=== PATIENT | female | born 1965 | race Caucasian/White ===

== ENCOUNTER → 2020-05-13 13:26 | Outpatient (BNVA) | payer MEDICAID, SELFPAY | PROVIDERS: PCP Internal Medicine Geriatric Medicine; Referring Provider Internal Medicine Geriatric Medicine; Visit Provider Anesthesiology | DX: M47.816 Spondylosis without myelopathy or radiculopathy, lumbar region (principal); M51.36 Other intervertebral disc degeneration, lumbar region; D17.71 Benign lipomatous neoplasm of kidney | CPT/HCPCS: 99202 ==

== ENCOUNTER 2020-05-18 05:34 | Outpatient (REF) | payer MEDICAID, SELFPAY ==
--- NOTE | 2020-05-18 08:38 | FL_ITS ---
EXAMINATION: XR FLUOROSCOPY WITH IMAGES CLINICAL INFORMATION: M47.816 - Spondylosis without myelopathy or radiculopathy COMPARISON: CT lumbar spine 07/24/2019 TECHNIQUE: Fluoroscopy performed by Tegan Mitchell NP. Fluoroscopy time: 0.9 minutes DAP: 3.39 Gycm2 Images: 8 FINDINGS: There are bilateral spinal needles at the outer aspect of the L3, L4, L5 neural foramen. There is contrast in the nerve sheaths with some transforaminal epidural extension. No visible vascular communication. FL/FL guidance in treatment room IMPRESSION: Fluoroscopy for pain management procedures.
== END 2020-05-18 05:35 | disposition home or self-care (01) ==
LOC: HO.RADIR 05:34
PROVIDERS: Visit Provider Anesthesiology
DX: M47.816 Spondylosis without myelopathy or radiculopathy, lumbar region (principal)
CPT/HCPCS: 64493; 64494; 64495; J3300; Q9967

== ENCOUNTER 2022-12-11 12:23 | Outpatient (REF) | payer MEDICAID, SELFPAY | END 2022-12-11 12:24 | disposition home or self-care (01) | LOC: HO.HHCL 12:23 | PROVIDERS: Visit Provider Internal Medicine Geriatric Medicine | DX: Z13.220 Encounter for screening for lipoid disorders (principal); I10 Essential (primary) hypertension; F41.8 Other specified anxiety disorders | CPT/HCPCS: 36415; 80053; 80061; 82306; 84443; 85025 ==

== ENCOUNTER 2023-01-17 18:07 | Outpatient (REF) | payer MEDICAID, SELFPAY ==
[2023-01-22 13:55] LABS: Alphahydroxymidazolam,GCMS Ur NEGATIVE; Alphahydroxytriazolam, GCMS Ur NEGATIVE; Alprazolam, GCMS Urine NEGATIVE; Flurazepam Metabolite,GCMS Ur NEGATIVE; Lorazepam GCMS Urine NEGATIVE; Nordiazepam, GCMS Urine NEGATIVE; Oxazepam, GCMS Urine NEGATIVE; Temazepam, GCMS Urine NEGATIVE
== END 2023-01-17 18:08 | disposition home or self-care (01) ==
LOC: HO.HHCLNP 18:07
PROVIDERS: Visit Provider Internal Medicine Geriatric Medicine
DX: F41.8 Other specified anxiety disorders (principal)
CPT/HCPCS: 80346

== ENCOUNTER 2023-03-14 17:38 | Outpatient (REF) | payer MEDICAID, SELFPAY ==
[2023-03-15 05:39] LABS: CT PCR NOT DETECTED (Not Detect.); NG PCR NOT DETECTED (Not Detect.)
== END 2023-03-14 17:39 | disposition home or self-care (01) ==
LOC: HO.HHCLNP 17:38
PROVIDERS: Visit Provider Internal Medicine
DX: R30.0 Dysuria (principal)
CPT/HCPCS: 0353U; 87086; 87088; 87186

== ENCOUNTER 2023-05-09 18:34 | Outpatient (REF) | payer MEDICAID, SELFPAY ==
[2023-05-14 08:29] LABS: Alphahydroxymidazolam,GCMS Ur NEGATIVE; Alphahydroxytriazolam, GCMS Ur NEGATIVE; Alprazolam, GCMS Urine NEGATIVE; Flurazepam Metabolite,GCMS Ur NEGATIVE; Lorazepam GCMS Urine NEGATIVE; Nordiazepam, GCMS Urine NEGATIVE; Oxazepam, GCMS Urine NEGTAIVE; Temazepam, GCMS Urine NEGATIVE
== END 2023-05-09 18:35 | disposition home or self-care (01) ==
LOC: HO.HHCLNP 18:34
PROVIDERS: Visit Provider Internal Medicine Geriatric Medicine
DX: F41.9 Anxiety disorder, unspecified (principal)
CPT/HCPCS: 80346

== ENCOUNTER 2023-07-09 13:28 | Outpatient (REF) | payer MEDICAID, SELFPAY ==
--- NOTE | ~2023-07-09 | XR_ITS ---
EXAMINATION: XR RIBS, RIGHT CLINICAL INFORMATION: Injury COMPARISON: None available. TECHNIQUE: 3 views of the right ribs were obtained. FINDINGS: Lungs are clear. No consolidation, pneumothorax, or pleural effusion. The cardiomediastinal silhouette and pulmonary vasculature are normal. Osseous structures are unremarkable. Ribs are intact. No fractures are identified. XR/XR ribs RT min 3V w CXR1V IMPRESSION: Unremarkable chest examination.
== END 2023-07-09 13:29 | disposition home or self-care (01) ==
LOC: HO.HHCX 13:28
PROVIDERS: Visit Provider Nurse Practitioner Primary Care
DX: M54.6 Pain in thoracic spine (principal); R07.81 Pleurodynia
CPT/HCPCS: 71101

== ENCOUNTER 2023-07-12 13:15 | Outpatient (REF) | payer MEDICAID, SELFPAY ==
[2023-07-16 08:29] LABS: Alphahydroxymidazolam,GCMS Ur NEGATIVE; Alphahydroxytriazolam, GCMS Ur NEGATIVE; Alprazolam, GCMS Urine NEGATIVE; Flurazepam Metabolite,GCMS Ur NEGATIVE; Lorazepam GCMS Urine NEGATIVE; Nordiazepam, GCMS Urine NEGATIVE; Oxazepam, GCMS Urine NEGATIVE; Temazepam, GCMS Urine NEGATIVE
== END 2023-07-12 13:16 | disposition home or self-care (01) ==
LOC: HO.HHCLNP 13:15
PROVIDERS: Visit Provider Internal Medicine Geriatric Medicine
DX: F41.9 Anxiety disorder, unspecified (principal)
CPT/HCPCS: 80346

== ENCOUNTER 2023-09-13 09:39 | Outpatient (REF) | payer MEDICAID, SELFPAY ==
[2023-09-13 12:05] LABS: Anion Gap 9 (12-20); Blood Urea Nitrogen 15 mg/dL (9-16); Calcium 9.6 mg/dL (8.4-10.2); Carbon Dioxide 28 mmol/L (22-29); Chloride 107 mmol/L (96-108); Cholesterol 226 mg/dL (<200); Estimated Glomerular Filt Rate > 60; Glucose Random 79 mg/dL (60-115); HDL Cholesterol 74 mg/dL (>40); LDL Cholesterol Calculated 131 mg/dL (<100); Potassium 3.8 mmol/L (3.3-5.1); Sodium 140 mmol/L (135-145); Triglycerides 106 mg/dL (<150)
[2023-09-19 11:41] LABS: Alphahydroxymidazolam,GCMS Ur NEGATIVE; Alphahydroxytriazolam, GCMS Ur NEGATIVE; Alprazolam, GCMS Urine NEGATIVE; Aminoclonazepam, GCMS Urine 119 (H); Flurazepam Metabolite,GCMS Ur NEGATIVE; Lorazepam GCMS Urine NEGATIVE; Nordiazepam, GCMS Urine NEGATIVE; Oxazepam, GCMS Urine NEGATIVE; Temazepam, GCMS Urine NEGATIVE
== END 2023-09-13 09:40 | disposition home or self-care (01) ==
LOC: HO.HHCL 09:39
PROVIDERS: Visit Provider Internal Medicine Geriatric Medicine
DX: I10 Essential (primary) hypertension (principal); E78.00 Pure hypercholesterolemia, unspecified; R25.1 Tremor, unspecified; F41.9 Anxiety disorder, unspecified
CPT/HCPCS: 36415; 80048; 80061; 80346; 84443

== ENCOUNTER 2024-01-03 16:00 | Outpatient (REF) | payer MEDICAID, SELFPAY ==
[2024-01-07 15:04] LABS: Alphahydroxymidazolam,GCMS Ur NEGATIVE; Alphahydroxytriazolam, GCMS Ur NEGATIVE; Alprazolam, GCMS Urine NEGATIVE; Flurazepam Metabolite,GCMS Ur NEGATIVE; Lorazepam GCMS Urine NEGATIVE; Nordiazepam, GCMS Urine NEGATIVE; Oxazepam, GCMS Urine NEGATIVE; Temazepam, GCMS Urine NEGATIVE
== END 2024-01-03 16:01 | disposition home or self-care (01) ==
LOC: HO.HHCLNP 16:00
PROVIDERS: Visit Provider Internal Medicine Geriatric Medicine
DX: F41.9 Anxiety disorder, unspecified (principal)
CPT/HCPCS: 80346

== ENCOUNTER 2024-04-16 17:49 | Outpatient (REF) | payer MEDICAID, SELFPAY ==
[2024-04-21 12:26] LABS: Alphahydroxymidazolam,GCMS Ur NEGATIVE; Alphahydroxytriazolam, GCMS Ur NEGATIVE; Alprazolam, GCMS Urine NEGATIVE; Aminoclonazepam, GCMS Urine 287 (H); Flurazepam Metabolite,GCMS Ur NEGATIVE; Lorazepam GCMS Urine NEGATIVE; Nordiazepam, GCMS Urine NEGATIVE; Oxazepam, GCMS Urine NEGATIVE; Temazepam, GCMS Urine NEGATIVE
== END 2024-04-16 17:50 | disposition home or self-care (01) ==
LOC: HO.HHCLNP 17:49
PROVIDERS: Visit Provider Internal Medicine Geriatric Medicine
DX: F41.9 Anxiety disorder, unspecified (principal)
CPT/HCPCS: 80346

== ENCOUNTER 2024-07-10 08:08 | Outpatient (REF) | payer MEDICAID, SELFPAY ==
--- OUTSIDE RECORDS SUMMARY | 2024-07-10 08:10 | XMS_ITS | Encounter Summary ---
Author Organization [facility] Address [address] [facility] 7t [place] [address] Care Team Providers Care Antisubmarine Weapons Officer Name Role Phone Name, Derrick SIMS Primary Care Provider [phone] Reason for Visit * Reason Onset Date Comments Med Refill 01/26/2023 Encounter Details Date Type Department Care Team ([facility] st Contact Info) Description 01/26/2023 Telephone [facility] [address] [place], [place] [phone] Name, MD Derrick [address] [place], [place] [phone] Med Refill Social History Tobacco Use Types Packs/Day Years Used Date Smoking Tobacco: Never Smokeless Tobacco: Never Alcohol Use Standard Drinks/Week Comments Never 0 (1 standard drink = 0.6 oz pur e alcohol) Depression Answer Date Recorded Patient Health Questionnaire-9 Score 6 09/06/2023 Patient Health Questionnaire-9 Score 6 09/06/2023 Last PHQ-9: Questionnaire Data Not on file 0 09/06/2023 Housing Stability Answer Date Recorded What is your housing situation today? I have parrish aldrich 09/06/[address] you li ve. Do you have problems with any of the following? None of the above 09/06/2023 Food Insecurity Answer Date Recorded Within the past 12 months, y ou worried that your food would run out before you got money to buy more: Never True 09/06/2023 Within the past 12 months,th e food you bought just didn't last and you didn't have enough money to get more: Never True 09/2023 Transportation Answer Date Recorded In the past 12 months, has l ack of transportation kept you from medical appts, meetings, work or from getting things needed for daily living? No 09/06/2023 Utilities Answer Date Recorded In the past 12 months, has t he electric, gas, oil or water company threatened to shut off services in your home? No 09/06/2023 Depression Answer Date Recorded Patient Health Questionnaire-2 Score 4 09/06/2023 Comments Unknown Sex and Gender Information Value Date Recorded Sex Assigned at Female 04/03/2022 10:16 AM EDT Legal Sex Female 10:16 AM EDT Gender Identity Female 04/03/2022 10:16 AM EDT Sexual Orientation Straight 04/03/2022 10 :16 AM EDT documented as of this encounter Miscellaneous Notes * Telephone Encounter - Darrius Jimenez - 01/26/2023 11:57 AM EDT Tc from pt requesting a refill clonazePAM (KlonoPIN) 1 MG tablet documented in this encounter Plan of Treatment Upcoming Encounters Date Type Department Care Team (Late st Contact Info) Description 07/14/2024 11:30 AM EST Clinical Support [facility] [address] [place] [id number] Reyna Willams RN 09/09/2024 10:45 AM EDT Office Visit [facility] [address] [place] [address] Name, MD Derrick [address] [place] [address] documented as of this encounter Visit Diagnoses Not on filedocumented in this encounter Additional Health Concerns Assessment Noted Time PHQ-9 Depression Total Score: 0 05/15/20 22 3:29 PM EST documented as of this encounter Care Teams Antisubmarine Weapons Officer Relationship Specialty Start Date End Date Name, MD Derrick [address] [place] [id number] PCP - General Family Medicine 08/20/15 documented as of this encounter
--- OUTSIDE RECORDS SUMMARY | 2024-07-10 08:10 | XMS_ITS | Encounter Summary ---
Author Organization [employer] Address [address] [facility] 7t [place] [address] Care Team Providers Care Gardening Supervisor Name Role Phone Name, Derrick SIMS Primary Care Provider [phone] Encounter Details Date Type Department Care Team ([facility] st Contact Info) Description 07/18/2023 Telephone [facility] [address] [place] [place], [place] [phone] Name, MD Derrick [address] [place] [address] Social History Tobacco Use Types Packs/Day Years Used Date Smoking Tobacco: Never Passive Smoke Exposure: Never Smokeless Tobacco: Never Alcohol Use Standard Drinks/Week Comments Never 0 (1 standard drink = 0.6 oz pur e alcohol) Depression Answer Date Recorded Patient Health Questionnaire-9 Score 0 05/15/2022 Housing Stability Answer Date Recorded What is your housing situation today? I have parrish aldrich 03/19/[address] you li ve. Do you have problems with any of the following? None of the above 03/19/2023 Food Insecurity Answer Date Recorded Within the past 12 months, y ou worried that your food would run out before you got money to buy more: Never True 03/19/2023 Within the past 12 months,th e food you bought just didn't last and you didn't have enough money to get more: Never True Transportation Answer Date Recorded In the past 12 months, has l ack of transportation kept you from medical appts, meetings, work or from getting things needed for daily living? No 03/19/2023 Utilities Answer Date Recorded In the past 12 months, has t he [employer], gas, oil or water [employer] threatened to shut off services in your home? No 03/19/2023 Depression Answer Date Recorded Patient Health Questionnaire-2 Score 0 05/15/2022 Comments Unknown Sex and Gender Information Value Date Recorded Sex Assigned at Female 04/03/2022 10:16 AM EDT Legal Sex Female 10:16 AM EDT Gender Identity Female 04/03/2022 10:16 AM EDT Sexual Orientation Straight 04/03/2022 10 :16 AM EDT documented as of this encounter Plan of Treatment Upcoming Encounters Date Type Department Care Team (Late st Contact Info) Description 07/14/2024 11:30 AM EST Clinical Support [address] [address] Reyna Willams RN 09/09/2024 10:45 AM EDT Office Visit [address] [address] Name, MD Derrick [address] [place] [address] documented as of this encounter Visit Diagnoses Not on filedocumented in this encounter Additional Health Concerns Assessment Noted Time PHQ-9 Depression Total Score: 0 05/15/20 22 3:29 PM EST documented as of this encounter Care Teams Gardening Supervisor Relationship Specialty Start Date End Date NameDerrick MD [address] [place] [id number] PCP - General Family Medicine 08/20/15 documented as of this encounter
--- OUTSIDE RECORDS SUMMARY | 2024-07-10 08:10 | XMS_ITS | Encounter Summary ---
Author Organization [employer] [facility] Address [address] [place] [address] 7t [place] [address] Care Team Providers Care Clay Stain Mixer Name Role Phone NameDerrick MD Primary Care Provider Encounter Details Date Type Department Care Team (Late st Contact Info) Description 11/14/2022 Abstract [facility] [address] [place] [address] [phone] Derrick Norton MD [address] [place] [address] [phone] Social History Tobacco Use Types Packs/Day Years Used Date Smoking Tobacco: Never Smokeless Tobacco: Never Alcohol Use Standard Drinks/Week Comments Never 0 (1 standard drink = 0.6 oz pur e alcohol) Depression Answer Date Recorded Patient Health Questionnaire-9 Score 0 05/15/2022 Depression Answer Date Recorded Patient Health Questionnaire-2 [...] Description 07/14/2024 11:30 AM EST Clinical Support [address] [address] Reyna Willams RN 09/09/2024 10:45 AM EDT Office Visit [address] [phone] Derrick Norton MD [address] [place] [address] [place] [address] documented as of this encounter Visit Diagnoses Not on filedocumented in this encounter Additional Health Concerns Assessment Noted Time PHQ-9 Depression Total Score: 0 05/15/20 22 3:29 PM EST documented as of this encounter Care Teams Clay Stain Mixer Relationship Specialty Start Date End Date Name, MD Derrick [address] [place] [address] PCP - General Family Medicine 08/20/15 documented as of this encounter
--- OUTSIDE RECORDS SUMMARY | 2024-07-10 08:10 | XMS_ITS | Encounter Summary ---
Author Organization [employer] [facility] Address [address] [facility] 7t [place] [address] Care Team Providers Care Periodontist Name Role Phone Name, Derrick SIMS Primary Care Provider [phone] Reason for Visit * Reason Comments Med Refill Encounter Details Date Type Department Care Team (Late st Contact Info) Description 07/06/2024 Refill [facility] [address] [place], [place] [phone] Name, MD Derrick [address] [place], [place] [phone] Social History Tobacco Use Types Packs/Day Years Used Date Smoking Tobacco: Some Days Cigarettes Passive Smoke Exposure: Never Smokeless Tobacco: Never [...] Description 07/14/2024 11:30 AM EST Clinical Support [address] [address] Reyna Willams RN 09/09/2024 10:45 AM EDT Office Visit [address] [phone] Name, MD Derrick [address] [place] [phone] documented as of this encounter Visit Diagnoses Not on filedocumented in this encounter Additional Health Concerns Assessment Noted Time PHQ-9 Depression Total Score: 6 09/06/19 24 9:26 AM EDT documented as of this encounter Care Teams Periodontist Relationship Specialty Start Date End Date Name, MD Derrick [address] [place] [id number] PCP - General Family Medicine 08/20/15 documented as of this encounter
--- OUTSIDE RECORDS SUMMARY | 2024-07-10 08:10 | XMS_ITS | Encounter Summary ---
Author Organization [employer] [facility] Address [address] [facility] 7t [place] [address] Care Team Providers Care Grievance Manager Name Role Phone Name, Derrick SIMS Primary Care Provider [phone] Reason for Visit * Reason Onset Date Comments Reschedule 04/23/2023 Encounter Details Date Type Department Care Team ([facility] st Contact Info) Description 04/23/2023 Telephone [facility] [address] [place], [place] [phone] Name, MD Derrick [address] [place], [place] [phone] Reschedule Social History Tobacco Use Types Packs/Day Years [...] encounter Miscellaneous Notes * Telephone Encounter - Mai Smith - 04/23/2023 9:04 AM EST Tc from pt requesting r/s 04/09/2023 f/u appt with PCP, typewriter repairer attempted to schedule, no availability. documented in this encounter Plan of Treatment Upcoming Encounters Date Type Department Care Team (Late st Contact Info) Description 07/14/2024 11:30 AM EST Clinical Support [facility] [address] [place] [phone] Reyna Willams RN 09/09/2024 10:45 AM EDT Office Visit [facility] [address] [place] [phone] Name, MD Derrick [address] [place] [address] documented as of this encounter Visit Diagnoses Not on filedocumented in this encounter Additional Health Concerns Assessment Noted Time PHQ-9 Depression Total Score: 0 05/15/20 22 3:29 PM EST documented as of this encounter Care Teams Grievance Manager Relationship Specialty Start Date End Date Name, MD Derrick [address] [place] [phone] PCP - General Family Medicine 08/20/15 documented as of this encounter
--- OUTSIDE RECORDS SUMMARY | 2024-07-10 08:10 | XMS_ITS | Clinical Summary ---
Author Organization [employer] Address [address] [place] [address] 7t [place] [address] Care Team Providers Care Boilermaker Welder Name Role Phone Name, Derrick SIMS Primary Care Provider [phone] Allergies No known active allergies Medications acetic acid-hydrocorti sone (Vosol-HC) otic solution 2 drops every 6 (six) hours. 04/05/20 21 Active fluticasone (Flonase) 50 MCG/ACT nasal sprayIndication s:Viral upper respiratory tract infection Administer 1 spray into each nostril in the morning. 16 g 2 06/22/19 23 Active lidocaine (Lidoderm) 5 % patch Apply 1 patch topically in the morning. Remove & discard patch within 12 hours or as directed by MD. May use 2 patches at once. 60 patch 2 07/16/19 24 025 Active propranolol LA (Inderal LA) 60 MG 24 hr capsule Take 1 capsule (60 mg) by mouth in the morning. Do not crush, chew, or split. 30 capsule 11 09/06/19 24 025 Active mometasone (Elocon) 0.1 % ointment Apply topically Once per day. 45 g 2 12/14/19 24 025 Active hydrOXYzine HCl (Atarax) 25 MG tablet TAKE 1 TABLET BY MOUTH IF NEEDED IN THE MORNING, AT NOON, AND AT BEDTIME FOR ITCHING OR ANXIETY. 90 tablet 01/16/20 24 Active albuterol 108 (90 Base) MCG/ACT inhalerIndicati ons:Non-product tay cough Inhale 2 puffs every 6 (six) hours if needed for wheezing. 18 g 11 03/19/20 24 025 Active clonazePAM (KlonoPIN) 1 MG tabletIndicatio ns:Anxiety Take 1 tablet (1 mg) by mouth every 12 (twelve) hours if needed for anxiety for up to 28 days. 56 tablet 06/09/19 25 Active FLUoxetine (PROzac) 40 MG capsule TAKE 1 CAPSULE BY MOUTH IN THE MORNING 30 capsule 11 07/07/19 25 Active FLUoxetine (PROzac) 40 MG capsule Take 1 capsule (40 mg) by mouth in the morning. 30 capsule 11 06/12/19 24 025 Discontinued Active Problems Problem Noted Date Diagnosed Date Essential tremor 09/06/2023 Burning with urination 03/14/2023 Insomnia due to other mental disorder 05/05/2022 Mixed anxiety and depressive disorder 05/05/2022 Subclinical hypothyroidism 05/05/2022 History of operative procedu re on lumbosacral spinal structure 05/05/2022 Tobacco use 05/05/2022 Angiomyolipoma of right kidney 07/25/2019 Lumbar radiculopathy 11/23/2017 Chronic pain syndrome 09/20/2017 Uterine leiomyoma 01/02/2017 Pain in female pelvis 09/25/2016 Tinea pedis 10/19/2015 Assessment & Plan (07/27/2022 11:10 AM EST): -Clotrimazole BID x 4 weeks -Return to clinic with no improvement or if symptoms persist Hypertension 10/13/2011 Migraine 06/07/2011 Resolved Problems Problem Noted Date Diagnosed Date Resolved Date Cystitis 03/14/2023 06/12/2023 Assessment & Plan (03/14/2023 2:17 PM EDT): Rx with Bactrim DS x 3-5d Increase water intake, take pyridium, cranberry juice FU Culture and GC/Chlam results Viral upper respiratory tract infection 06/22/2022 07/27/2022 Assessment & Plan (06/22/2022 1:13 PM EST): Improving, has residual cough. No evidence of complications at this time. -Use albuterol q4 hours x2 days then q6 hours x2 days, then q8 hours x2 days, and then PRN -Encouraged increased hydration -Call back prn worsening of symptoms or fever Acute cough 06/22/2022 07/27/2022 Assessment & Plan (06/22/2022 1:12 PM EST): Secondary to URI. Disease due to severe acute respiratory syndrome coronavirus 2 (SARS-CoV-2) 03/05/2022 022 08/2022 Overview (05/15/2022): Problem added by Discern Expert Blurring of visual image 01/04/201802/2024 Menometrorrhagia 09/25/2016 06/12/2023 Scar 05/23/2016 06/12/2023 Encounters Date Type Department Care Team Description 07/06/2024 Refill [facility] [address] [place] [address] Derrikc Norton MD 06/18/2024 10:30 AM EST Clinical Support [facility] [address] [place] [address] Reyna Willams, JONELLE Anxiety (Primary Dx) 06/18/2024 Telephone [facility] [address] [place] [address] Reyna Willams, JONELLE Clonazepam count 06/18/2024 Travel 06/18/2024 Telephone [facility] [address] [place] [address] Reyna Willams, JONELLE Recommend GUEST ROOM ATTENDANT Tier 2 06/09/2024 Refill [facility] [address] [place] [address] Adelina Luke, MEE Acute right-sided thoracic back pain; Rib pain on right side 06/09/2024 Refill [facility] [address] [place] [address] Derrick Norton MD Anxiety 05/08/2024 Refill [facility] [address] [place] [address] Derrick Norton MD Anxiety 04/16/2024 10:30 AM EST Clinical Support [facility] [address] [place] [address] Reyna Willams, JONELLE Anxiety (Primary Dx) 04/16/2024 Travel 04/15/2024 Telephone [facility] [address] [facility] [place] [address] Name, MD Derrick Med Refill 04/09/2024 Refill [facility] [address] [facility] [place] [address] Name, MD Derrick Anxiety from Last 3 Months Immunizations Name Administration Dates Next Due Influenza injectable quadriv alent IIV4 with preservative 02/19/2019,03/07/2017 Influenza injectable quadriv alent preservative free 03/15/2022,03/01/2021,03/04/2020,2011 Influenza, IIV3, injectable 06/07/2011, 0 Influenza, seasonal, injecta ble, preservative free 03/19/2024 Elenita SARS-CoV-2 Vaccination 08/18/2020 Moderna Covid-19 Vaccine 12+ 10/11/2021,04/22/20 21 Moderna Covid-19 Vaccine 6+ Bivalent 05/12/2022 Pfizer Covid-19 Vaccine 12+ 05/09/2023 Pneumococcal Conjugate PCV 20 03/19/2024 TD (adult), 2 Lf tetanus tox oid, preservative free, adsorbed 11/08/2020 Td (adult), 5 Lf tetanus tox oid, preservative free, adsorbed 10/21/2014 Tdap 10/09/2008 Social History Tobacco Use Types Packs/Day Years Used Date Smoking Tobacco: Some Days Cigarettes Passive Smoke Exposure: Never Smokeless Tobacco: Never Tobacco Cessation:Ready to Q uit: Not Asked; Counseling Given: Not Answered Alcohol Use Standard Drinks/Week Comments Never 0 [...] Orientation Straight 04/03/2022 10 :16 AM EDT Last Filed Vital Signs Vital Sign Reading Time Taken Comments Blood Pressure 116/84 03/19/2024 11:39 AM EDT Pulse 81 03/19/2024 11:39 AM EDT Temperature 36.9 ??C (98.5 ??F) 03/19/2024 1 1:39 AM EDT Respiratory Rate 21 03/19/2024 11:3 9 AM EDT Oxygen Saturation 99% 03/19/2024 11: 39 AM EDT Inhaled Oxygen Concentration - - Weight 59.3 kg (130 lb 12.8 oz) 024 11:39 AM EDT Height 157.5 cm (5' 2 ) 03/19/2024 11:3 9 AM EDT Body Mass Index 23.92 03/19/2024 11:39 AM EDT Plan of Treatment Upcoming Encounters Date Type Department Care Team (Late st Contact Info) Description 07/14/2024 11:30 AM EST Clinical Support [facility] [address] [place] [address] Reyna Willams, JONELLE 09/09/2024 10:45 AM EDT Office Visit [facility] [address] [place] [address] Name, MD Derrick [address] [place] [phone] Health Maintenance Due Date Last Done Comments CT Colonography 1964 FIT DNA/Cologuard 1964 FIT 1964 FOBT 1964 HIV Screening 1964 Sigmoidoscopy 1964 Hepatitis C Screening 1982 Pap Smear 1985 Cervical Cancer Screening 1994 HPV/Cotest 1994 Zoster Vaccines (1 of 2) 2014 COVID-19 Vaccine ( season) 2024 05/09/2023, 05/12/2022, 10/11/2021, Additional history exists Mammogram 03/22/2024 03/22/2022, 03/22/2022 Depression Screening 09/05/2024 09/06/2023, 09/06/19 24 SDOH Screening 09/05/2024 09/06/2023 Alcohol/Substance Use Screening 12/13/2024 12/14/2023 Colonoscopy 02/24/2025 02/24/2015, 02/24/2015 Colorectal Cancer Screening 02/24/2025 Tobacco Screening 03/19/2025 03/19/2024 Lipid Panel 09/12/2028 09/13/2023, 12/02, 12/20/2021, Additional history exists DTaP/Tdap/Td Vaccines (4 - Td or Tdap) 11/08/2030 11/08/2020, 10/21/2014, 10/09/2008 RSV Patients and Patients Aged 60 years or older (1 - 1-dose 75+ series) 2039 Influenza Vaccine Completed 03/19/2024, , 03/01/2021, Additional history exists Pneumococcal Vaccine: 50+ Years Completed 03/19/2024 HIB Vaccines Aged Out No longer eligi ble based on patient's age to complete this topic HPV Vaccines Aged Out No longer eligi ble based on patient's age to complete this topic Hepatitis A Vaccines Aged Out No long er eligible based on patient's age to complete this topic Hepatitis B Vaccines Aged Out No long er eligible based on patient's age to complete this topic IPV Vaccines Aged Out No longer eligi ble based on patient's age to complete this topic Meningococcal Vaccine Aged Out No kemi kip eligible based on patient's age to complete this topic RSV under 20 months Aged Out No longe r eligible based on patient's age to complete this topic Rotavirus Vaccines Aged Out No longer eligible based on patient's age to complete this topic Procedures Procedure Name Priority Date/Time Associated Diagnosis Comments POCT MARY KAY-14 URINE DRUG SCREEN Routine 06/18/2024 11:14 AM EST Anxiety POCT MARY KAY-14 URINE DRUG SCREEN Routine 04/16/2024 10:30 AM EST Anxiety DRUG MONITORING, BENZODIAZEPINES, QUANTITATIVE, URINE Routine 04/16/2024 10:15 AM EST Anxiety LIPID PANEL, STANDARD Routine 09/13/2023 9:42 AM EDT High cholesterol MAMMOGRAPHY Routine 03/22/2022 COLONOSCOPY Routine 02/24/2015 from Last 3 Months or Most Recently Relevant to Health Maintenance Results * POCT MARY KAY-14 Urine Drug Screen (06/18/2024 11:14 AM EST) Only the most recent of2 resultswithin the time period is included. Benzodiazepines Screen, Urine Positive Urine Urine specimen obtained by clean catch procedure / Unknown 06/18/2024 11:14 AM EST Reyna York RN - 06/18/2024 11:14 AM EST UTOX cup Lot#[id number] Exp. 02/26/26 Internal Pass Control us Derrick Name POINT OF CARE TEST ENTER/EDIT OR DERABLES Final Result * Drug Monitoring, Benzodiazepines, Quantitative, Urine (04/16/2024 10:15 AM EST) Nordiazepam, GCMS Urine NEGATIVE [facility] Oxazepam, GCMS Urine NEGATIVE [facility] Lorazepam GCMS Urine NEGATIVE [facility] Alprazolam, GCMS Urine NEGATIVE [facility] Alphahydroxytriazolam, GCMS Ur NEGATIVE [facility] Temazepam, GCMS Urine NEGATIVE [facility] Alphahydroxymidazolam, GCMS Ur NEGATIVE [facility] Aminoclonazepam, GCMS Urine 287 (H) [facility] Comment:REFERENCE RANGE: <25 ng/mL Flurazepam Metabolite,GCMS Ur NEGATIVE [facility] Benzodiazepines Comments SEE NOTE [facility] Comment:This drug testing is for medical treatment only.Analysis was performed as non-forensic testing andthese results should be used only by healthcareproviders to render diagnosis or treatment, or tomonitor progress of medical conditions.Benzodiazepines Notes:Aminoclonazepam detected is consistent with the use ofthe drug Clonazepam.LDT Notes:Confirmation tests were developed and their analyticalperformance characteristics have been determined by[employer]. It has not been cleared or approvedby the FDA. This assay has been validated pursuant tothe CLIA regulations and is used for clinical purposes.Healthcare Providers needing Interpretation assistance,please contact us at [phone] ( )M- F, 8am to 10pm ESTTHIS TEST PERFORMED AT:[facility] [place] [phone] DIRECTOR: SRINIVASAN PHILLIPS MD Urine (Urine, Random) 04/16/2024 10:15 AM EST 04/16/2024 5:50 PM EST us Derrick Norton MD LAB URINE ORDERABLES Final Resul t [facility] [address] [place], [place] [phone] * (ABNORMAL) Lipid Panel, Standard (09/13/2023 9:42 AM EDT) Triglycerides 106 <150 mg/dL [facility] Comment:Desirable Triglyceri de: less than 150 mg/dLBorderline High Triglyceride 150-199 mg/dLHigh Triglyceride: 200-499 mg/dLVery High Triglyceride: greater than or equal to 5OO mg/dL Cholesterol 226(H) <200 mg/dL [facility] Comment:Desirable Cholestero l: less than 200 mg/dLBorderline High Cholesterol: 200-239 mg/dLHigh Cholesterol: greater than 239 mg/dL LDL Cholesterol Calculated 131(H) <100 mg/dL [facility] Comment:Desirable LDL: less than 100 mg/dLNear Optimal/Above Optimal LDL: 110- 129 mg/dLBorderline High LDL: 130-159 mg/dLHigh LDL: 160-189 mg/dLVery High LDL: greater than or equal to 190 mg/dL HDL Cholesterol 74 >40 mg/dL [facility] Comment:Desirable HDL: great er than 40 mg/dL Note: This HDL assay may give artificially low results in patients with liver disease. Blood Venous blood specimen / Unknown 09/13/2023 9:42 AM EDT 09/13/2023 11:27 AM EDT Derrick Norton MD LAB BLOOD ORDERABLES Final Resul t [facility] [address] [place], [place] [phone] * Mammography (03/22/2022) Mammogram performed Anatomical Region Laterality Modality Other Historical Provider HEALTH MAINTENANCE Final Result * Colonoscopy (02/24/2015) Colonoscopy Normal Normal Historical Provider HEALTH MAINTENANCE Final Result from Last 3 Months or Most Recently Relevant to Health Maintenance [facility] C[facility] HSN PARTIAL Care Teams Boilermaker Welder Relationship Specialty Start Date End Date Name, MD Derrick [address] [place] [phone] PCP - General Family Medicine 08/20/15
--- OUTSIDE RECORDS SUMMARY | 2024-07-10 08:10 | XMS_ITS | Encounter Summary ---
Author Organization [facility] Address [address] [facility] [address]t [place] [address] Care Team Providers Care Curator Horticultural Museum Name Role Phone Name, Derrick SIMS Primary Care Provider [phone] Reason for Visit * Reason Comments MULTIPLE DRILL OPERATOR RV MULTIPLE DRILL OPERATOR RV Encounter Details Date Type Department Care Team (Latest Contact Info) Description 06/18/2024 10:30 AM EST Clinical Support [address] [address] Reyna Willams RN Anxiety (Primary Dx) Social History Tobacco Use Types Packs/Day Years [...] AM EDT documented as of this encounter Progress Notes * Reyna Willams RN - 06/18/2024 10:30 AM EST S: Pt here for MULTIPLE DRILL OPERATOR Revisit, accompanied by her who also assisted with translation. Patient is prescribed Clonazepam 1mg Q12hr PRN. She states she has been taking 2 doses per day. She last took her Clonazepam this morning. Continues to deny smoking cigarettes, ETOH use, Illicit drug use and marijuana use. She continues to feel like her Clonazepam is helping with her anxiety, but she continues to not sleep well. She continues to meets with her therapist regularly. She has started seeing apsychiatrist Josi Duran, who she said will be taking over her Clonazepam RX at some point, she's awaiting her medical records. O: MULTIPLE DRILL OPERATOR Tier 2. Pt currently prescribed Clonazepam 1mg Q12hr PRN. INTERIOR DESIGN FACULTY MEMBER verified today. Rx last filledon 06/09/24. Pill count performed. Pt has 29.5 pills as this time, 37 at least expected. Reviewed Clonazepam order. Patient and stated sometimes when she can't sleep at night she takes an extrahalf dose. Explained to patient that she will run out of her Clonazepam before her refill is due at this rate. Encouraged her to only use as prescribed. UTOX completed. Positive for BZO, Negative for AMP, BAR, BUP, PARVEEN, FTY, MDMA, MET, MOP, MTD, OXY, PCP, TCA, THC. UTOX as expected. Will update PCP on Clonazepam pill count. Last PCP visit was 03/19/24. A: MULTIPLE DRILL OPERATOR Contract Revisit, Chronic BZO use r/t anxiety. P: Pt to continue taking medication only as prescribed; Next MULTIPLE DRILL OPERATOR RV appointment scheduled for 07/14/24 @ 11:30am, F/U sooner PRN. Appointment reminder given. Pt verbalized understanding and agreed to plan documented in this encounter Plan of Treatment Upcoming Encounters Date Type Department Care Team (Late st Contact Info) Description 07/14/2024 11:30 AM EST Clinical Support [facility] [address] [place] [address] Reyna Willams RN 09/09/2024 10:45 AM EDT Office Visit [address] [address] Name, MD Derrick [address] [place] [address] [phone] documented as of this encounter Procedures Procedure Name Priority Date/Time Associated Diagnosis Comments POCT MARY KAY-14 URINE DRUG SCREEN Routine 06/18/2024 11:14 AM EST Anxiety documented in this encounter Results * POCT MARY KAY-14 Urine Drug Screen (06/18/2024 11:14 AM EST) Benzodiazepines Screen, Urine Positive Urine Urine specimen obtained by clean catch procedure / Unknown 06/18/2024 11:14 AM EST Narrative Reyna Willams RN - 06/18/2024 11:14 AM EST UTOX cup Lot#[id number] Exp. 02/26/26 Internal Pass Control Derrick Norton MD POINT OF CARE TEST ENTER/EDIT OR DERABLES Final Result documented in this encounter Visit Diagnoses Diagnosis Anxiety- Primary Anxiety state, unspecified documented in this encounter Additional Health Concerns Assessment Noted Time PHQ-9 Depression Total Score: 6 09/06/19 24 9:26 AM EDT documented as of this encounter Care Teams Curator Horticultural Museum Relationship Specialty Start Date End Date NameDerrick MD [address] [place] [phone] PCP - General Family Medicine 08/20/15 documented as of this encounter
--- OUTSIDE RECORDS SUMMARY | 2024-07-10 08:10 | XMS_ITS | Encounter Summary ---
Author Organization [employer] Address [address] [facility] 7t [place] [address] Care Team Providers Care Shoe Lay Out Planner Name Role Phone Name, Derrick SIMS Primary Care Provider [phone] Reason for Visit * Reason Comments Med Refill Encounter Details Date Type Department Care Team (Late st Contact Info) Description 06/09/2024 Refill [facility] [address] [place], [place] [phone] Adelina Luke, ANP [address] [place] [address] Acute right-sided thoracic back pain; Rib pain on right side Social History Tobacco Use Types Packs/Day Years [...] Description 07/14/2024 11:30 AM EST Clinical Support [address] [address] Reyna Willams RN 09/09/2024 10:45 AM EDT Office Visit [address] [address] Name, MD Derrick [address] [place] [address] documented as of this encounter Visit Diagnoses Diagnosis Acute right-sided thoracic back pain Rib pain on right side documented in this encounter Additional Health Concerns Assessment Noted Time PHQ-9 Depression Total Score: 6 09/06/19 24 9:26 AM EDT documented as of this encounter Care Teams Shoe Lay Out Planner Relationship Specialty Start Date End Date NameDerrick MD [address] [place] [address] PCP - General Family Medicine 08/20/15 documented as of this encounter
--- OUTSIDE RECORDS SUMMARY | 2024-07-10 08:10 | XMS_ITS | Encounter Summary ---
Author Organization [employer] [facility] Address [address] [facility] 7t [place] [address] Care Team Providers Care Call Center Team Leader Name Role Phone Name, Derrick SIMS Primary Care Provider [phone] Reason for Visit * Reason Onset Date Comments Recommend LINOTYPE OPERATOR Tier 2 06/18/2024 Encounter Details Date Type Department Care Team ([facility] st Contact Info) Description 06/18/2024 Telephone [facility] [address] [place] [address] Reyna Willams, JONELLE Recommend LINOTYPE OPERATOR Tier 2 Social History Tobacco Use Types Packs/Day Years [...] encounter Miscellaneous Notes * Telephone Encounter - Reyna Willams RN - 06/18/2024 7:28 AM EST What LINOTYPE OPERATOR Tier would you like this patient to be? I recommend Tier 2, please let me know if you agree or would rather patient be in another LINOTYPE OPERATOR Tier. Tier 1 = HIGH RISK, Monthly LINOTYPE OPERATOR visits Tier 2 = MODerate RISK, Q3 Month visits Tier 3 = LOW RISK = Q4-6 month visits documented in this encounter Plan of Treatment Upcoming Encounters Date Type Department Care Team (Late st Contact Info) Description 07/14/2024 11:30 AM EST Clinical Support [facility] [address] [place] [address] Reyna Willams RN 09/09/2024 10:45 AM EDT Office Visit [facility] [address] [place] [address] Name, MD Derrick [address] [place] [address] documented as of this encounter Visit Diagnoses Not on filedocumented in this encounter Additional Health Concerns Assessment Noted Time PHQ-9 Depression Total Score: 6 09/06/19 24 9:26 AM EDT documented as of this encounter Care Teams Call Center Team Leader Relationship Specialty Start Date End Date Derrick Norton MD [address] [place] [phone] PCP - General Family Medicine 08/20/15 documented as of this encounter
--- OUTSIDE RECORDS SUMMARY | 2024-07-10 08:10 | XMS_ITS | Encounter Summary ---
Author Organization [employer] Address [address] [facility] 7t [place] [address] Care Team Providers Care Personal Banking Officer Name Role Phone Name, Derrick SIMS Primary Care Provider [phone] Encounter Details Date Type Department Care Team (Latest Contact Info) Description 06/18/2024 Travel Social History Tobacco Use Types Packs/Day Years [...] Description 07/14/2024 11:30 AM EST Clinical Support [facility] [address] [place] [address] Reyna Willams RN 09/09/2024 10:45 AM EDT Office Visit [facility] [address] [place] [address] Name, MD Derrick [address] [place] [address] documented as of this encounter Visit Diagnoses Not on filedocumented in this encounter Additional Health Concerns Assessment Noted Time PHQ-9 Depression Total Score: 6 09/06/19 24 9:26 AM EDT documented as of this encounter Care Teams Personal Banking Officer Relationship Specialty Start Date End Date Name, MD Derrick [address] [place] [address] PCP - General Family Medicine 08/20/15 documented as of this encounter
--- OUTSIDE RECORDS SUMMARY | 2024-07-10 08:10 | XMS_ITS | Encounter Summary ---
Author Organization [facility] Address [address] [place] [address] 7t [place] [address] Care Team Providers Care Rn Imcu Name Role Phone Name, Derrick SIMS Primary Care Provider [phone] Reason for Visit * Reason Onset Date Comments Med Refill 12/04/2022 Encounter Details Date Type Department Care Team ([facility] st Contact Info) Description 12/04/2022 Telephone [facility] [address] [place], [place] [phone] Name, MD Derrick [address] [place] [address] Med Refill Social History Tobacco Use Types [...] encounter Miscellaneous Notes * Telephone Encounter - Shana See - 12/04/2022 2:22 PM EDT Tc from pt requesting medication refill on clonazePAM (KlonoPIN) 1 MG tablet documented in this encounter Plan of Treatment Upcoming Encounters Date Type Department Care Team (Late st Contact Info) Description 07/14/2024 11:30 AM EST Clinical Support [address] [address] Reyna Willams, RN 09/09/2024 10:45 AM EDT Office Visit [address] [address] Name, MD Derrick [address] [place] [address] documented as of this encounter Visit Diagnoses Not on filedocumented in this encounter Additional Health Concerns Assessment Noted Time PHQ-9 Depression Total Score: 0 05/15/20 22 3:29 PM EST documented as of this encounter Care Teams Rn Imcu Relationship Specialty Start Date End Date NameDerrick MD [address] [place] [phone] PCP - General Family Medicine 08/20/15 documented as of this encounter
--- OUTSIDE RECORDS SUMMARY | 2024-07-10 08:10 | XMS_ITS | Encounter Summary ---
Author Organization [employer] [facility] Address [address] [facility] 7t [place] [address] Care Team Providers Care Pearl Peller Name Role Phone Name, Derrick SIMS Primary Care Provider [phone] Reason for Visit * Reason Onset Date Comments Clonazepam count 06/18/2024 Encounter Details Date Type Department Care Team ([facility] st Contact Info) Description 06/18/2024 Telephone [facility] [address] [place] [address] [phone] Reyna Willams RN Clonazepam count Social History Tobacco Use Types Packs/Day Years [...] Encounter - Reyna Willams RN - 06/18/2024 11:20 AM EST Pt had MARINE MACHINIST RV appt today Clonazepam count was 29.5, expected 37. States when she can't sleep she will take an extra half dose at night. Reminded her refill isnt due until 07/07/24 and she would likely run out before. Pt has started with new psychiatrist, she and reported she see's Josi Duran, who is awaiting pts medical records. Pt said her psychiatrist will be prescribing Clonazepam at some point. Coming back for MARINE MACHINIST visit 07/14/24. documented in this encounter Plan of Treatment Upcoming Encounters Date Type Department Care Team (Late st Contact Info) Description 07/14/2024 11:30 AM EST Clinical Support [facility] [address] [place] [address] [phone] Reyna Willams RN 09/09/2024 10:45 AM EDT Office Visit [facility] [address] [place] [phone] Name, MD Derrick [address] [place] [address] documented as of this encounter Visit Diagnoses Not on filedocumented in this encounter Additional Health Concerns Assessment Noted Time PHQ-9 Depression Total Score: 6 09/06/19 24 9:26 AM EDT documented as of this encounter Care Teams Pearl Peller Relationship Specialty Start Date End Date Name, MD Derrick [address] [place] [address] PCP - General Family Medicine 08/20/15 documented as of this encounter
[2024-07-10 11:41] LABS: Cholesterol 225 mg/dL (<200); HDL Cholesterol 59 mg/dL (>40); LDL Cholesterol Calculated 143 mg/dL (<100); Triglycerides 115 mg/dL (<150)
== END 2024-07-10 08:09 | disposition home or self-care (01) ==
LOC: HO.HHCL 08:08
PROVIDERS: Visit Provider Internal Medicine Geriatric Medicine
DX: E78.00 Pure hypercholesterolemia, unspecified (principal)
CPT/HCPCS: 36415; 80061

== ENCOUNTER 2024-07-14 13:23 | Outpatient (REF) | payer MEDICAID, SELFPAY ==
--- OUTSIDE RECORDS SUMMARY | 2024-07-14 14:25 | XMS_ITS | Encounter Summary ---
Author Organization [employer] [facility] Address [address] [place] [address] 7t [place] [address] Care Team Providers Care Research Group Director Name Role Phone Name, Derrick SIMS Primary Care Provider Encounter Details Date Type Department Care Team (Late st Contact Info) Description 11/14/2022 Abstract [facility] [address] [place] [address] [phone] NameDerrick MD [address] [place] [address] [phone] Social History Tobacco Use Types Packs/Day Years [...] Care Team (Late st Contact Info) Description 09/09/2024 10:45 AM EDT Office Visit [facility] [address] [place] [address] [phone] NameDerrick MD [address] [place] [address] [phone] 10/07/2024 9:00 AM EDT Clinical Support [facility] [address] [place] [address] Reyna Willams, JONELLE documented as of this encounter Visit Diagnoses Not on filedocumented in this encounter Additional Health Concerns Assessment Noted Time PHQ-9 Depression Total Score: 0 05/15/20 22 3:29 PM EST documented as of this encounter Care Teams Research Group Director Relationship Specialty Start Date End Date Name, MD Derrick [address] [place] [address] PCP - General Family Medicine 08/20/15 documented as of this encounter
--- OUTSIDE RECORDS SUMMARY | 2024-07-14 14:25 | XMS_ITS | Encounter Summary ---
Author Organization [employer] [facility] Address [address] [facility] 7t [place] [address] Care Team Providers Care Caustic Room Operator Name Role Phone Name, Derrick SIMS Primary Care Provider [phone] Reason for Visit * Reason Comments FLUE CLEANER RV FLUE CLEANER RV Encounter Details Date Type Department Care Team (Latest Contact Info) Description 06/18/2024 10:30 AM EST Clinical Support [facility] [address] [place] [address] [phone] Reyna Willams RN Anxiety (Primary Dx) Social [...] 10:30 AM EST S: Pt here for FLUE CLEANER Revisit, accompanied by her who also assisted [...] point, she's awaiting her medical records. O: FLUE CLEANER Tier 2. Pt currently prescribed Clonazepam 1mg Q12hr PRN. AIRPORT OPERATIONS MANAGER verified today. Rx last filledon 06/09/24. Pill [...] count. Last PCP visit was 03/19/24. A: FLUE CLEANER Contract Revisit, Chronic BZO use r/t anxiety. P: Pt to continue taking medication only as prescribed; Next FLUE CLEANER RV appointment scheduled for 07/14/24 @ 11:30am, F/U sooner PRN. Appointment reminder given. Pt verbalized understanding and agreed to plan documented in this encounter Plan of Treatment Upcoming Encounters Date Type Department Care Team ([facility] st Contact Info) Description 09/09/2024 10:45 AM EDT Office Visit [address] [address] Derrick Norton MD [address] [place] [address] 10/07/2024 9:00 AM EDT Clinical Support [address] [phone] Reyna Willams, RN documented as of this encounter Procedures Procedure Name Priority Date/Time Associated Diagnosis Comments POCT MARY KAY-14 URINE DRUG SCREEN Routine 06/18/2024 11:14 AM EST Anxiety documented in this encounter Results * POCT MARY KAY-14 Urine Drug Screen (06/18/2024 11:14 AM EST) Benzodiazepines Screen, Urine Positive Urine Urine specimen obtained by clean catch procedure / Unknown 06/18/2024 11:14 AM EST Narrative Reyna Willams, RN - 06/18/2024 11:14 AM EST UTOX cup Lot#[id number] Exp. 02/26/26 Internal Pass Control Derrick Norton MD POINT OF CARE TEST ENTER/EDIT OR DERABLES Final Result documented in this encounter Visit Diagnoses Diagnosis Anxiety- Primary Anxiety state, unspecified documented in this encounter Additional Health Concerns Assessment Noted Time PHQ-9 Depression Total Score: 6 09/06/19 24 9:26 AM EDT documented as of this encounter Care Teams Caustic Room Operator Relationship Specialty Start Date End Date Derrick Norton MD [address] [place] [phone] PCP - General Family Medicine 08/20/15 documented as of this encounter
--- OUTSIDE RECORDS SUMMARY | 2024-07-14 14:25 | XMS_ITS | Encounter Summary ---
Author Organization [employer] Address [address] [facility] 7t [place] [address] Care Team Providers Care Dedicated Regional Driver Name Role Phone Name, Derrick SIMS Primary Care Provider [phone] Reason for Visit * Reason Comments Med Refill Encounter Details Date Type Department Care Team (Late st Contact Info) Description 06/09/2024 Refill [facility] [address] [place], [place] [phone] Adelina Luke, ANP [address] [place] [address] Acute right-sided thoracic back pain; Rib pain [...] is your housing situation today? I have prarish aldrich 09/06/[address] you [...] Description 09/09/2024 10:45 AM EDT Office Visit [address] [address] NameDerrick MD [address] [place] [address] 10/07/2024 9:00 AM EDT Clinical Support [address] [address] Reyna Willams RN documented as of this encounter Visit Diagnoses Diagnosis Acute right-sided thoracic back pain Rib pain on right side documented in this encounter Additional Health Concerns Assessment Noted Time PHQ-9 Depression Total Score: 6 09/06/19 24 9:26 AM EDT documented as of this encounter Care Teams Dedicated Regional Driver Relationship Specialty Start Date End Date Derrick Norton MD [address] [place] [phone] PCP - General Family Medicine 08/20/15 documented as of this encounter
--- OUTSIDE RECORDS SUMMARY | 2024-07-14 14:25 | XMS_ITS | Encounter Summary ---
Author Organization [employer] [facility] Address [address] [facility] 7t [place] [address] Care Team Providers Care Cattle Care Worker Name Role Phone Name, Derrick SIMS Primary Care Provider [phone] Reason for Visit * Reason Comments Med Refill Encounter Details Date Type Department Care Team (Late st Contact Info) Description 07/06/2024 Refill [facility] [address] [place], [place] [phone] Name, MD Derrick [address] [place], [place] [phone] Social History Tobacco Use Types Packs/Day Years [...] Description 09/09/2024 10:45 AM EDT Office Visit [facility] [address] [place] [address] NameDerrick MD [address] [place] [phone] 10/07/2024 9:00 AM EDT Clinical Support [facility] [address] [place] [address] Reyna Willams, JONELLE documented as of this encounter Visit Diagnoses Not on filedocumented in this encounter Additional Health Concerns Assessment Noted Time PHQ-9 Depression Total Score: 6 09/06/19 24 9:26 AM EDT documented as of this encounter Care Teams Cattle Care Worker Relationship Specialty Start Date End Date Name, MD Derrick [address] [place] [address] PCP - General Family Medicine 08/20/15 documented as of this encounter
--- OUTSIDE RECORDS SUMMARY | 2024-07-14 14:25 | XMS_ITS | Encounter Summary ---
Author Organization [employer] [facility] Address [address] [place] [address] 7t [place] [address] Care Team Providers Care Help Desk Supervisor Name Role Phone Name, Derrick SIMS Primary Care Provider [phone] Reason for Visit * Reason Onset Date Comments Med Refill 12/04/2022 Encounter Details Date Type Department Care Team ([facility] st Contact Info) Description 12/04/2022 Telephone [facility] [address] [place], [place] [phone] Name, MD Derrick [address] [place] [address] Med Refill Social History Tobacco Use Types [...] Description 09/09/2024 10:45 AM EDT Office Visit [address] [address] Name, MD Derrick [address] [place] [address] 10/07/2024 9:00 AM EDT Clinical Support [address] [address] Reyna Willams, JONELLE documented as of this encounter Visit Diagnoses Not on filedocumented in this encounter Additional Health Concerns Assessment Noted Time PHQ-9 Depression Total Score: 0 05/15/20 22 3:29 PM EST documented as of this encounter Care Teams Help Desk Supervisor Relationship Specialty Start Date End Date NameDerrick MD [address] [place] [address] PCP - General Family Medicine 08/20/15 documented as of this encounter
--- OUTSIDE RECORDS SUMMARY | 2024-07-14 14:25 | XMS_ITS | Clinical Summary ---
Author Organization [employer] Address [address] [place] [address] 7t [place] [address] Care Team Providers Care Cane Pusher Name Role Phone Name, Derrick SIMS Primary Care Provider [phone] Allergies No known active allergies Medications acetic acid-hydrocort isone (Vosol-HC) otic solution 2 drops every 6 (six) hours. 04/05/20 21 Active fluticasone (Flonase) 50 MCG/ACT nasal sprayIndicatio ns:Viral upper respiratory tract infection Administer 1 spray [...] 24 Active albuterol 108 (90 Base) MCG/ACT inhalerIndicat ions:Non-produ ctive cough Inhale 2 puffs every 6 (six) hours if needed for wheezing. 18 g 11 03/19/20 24 025 Active FLUoxetine (PROzac) 40 MG capsule TAKE 1 CAPSULE BY MOUTH IN THE MORNING 30 capsule 11 07/07/19 25 Active clonazePAM (KlonoPIN) 1 MG tabletIndicati ons:Anxiety Take 1 tablet (1 mg) by mouth every 12 (twelve) hours if needed for anxiety for up to 28 days. 56 tablet 07/10/19 25 025 Active FLUoxetine (PROzac) 40 MG capsule Take 1 capsule (40 mg) by mouth in the morning. 30 capsule 11 06/12/19 24 025 Discontinued clonazePAM (KlonoPIN) 1 MG tabletIndicati ons:Anxiety Take 1 tablet (1 mg) by mouth every 12 (twelve) hours if needed for anxiety for up to 28 days. 56 tablet 06/09/19 25 025 Discontinued(Re order (will not trigger notification to Pharmacy)) Active Problems Problem Noted Date Diagnosed Date [...] severe acute respiratory syndrome coronavirus 2 (SARS-CoV-2) 03/05/202207/06 Overview (05/15/2022): Problem added by Discern Expert Blurring of visual image 01/04/201802/2024 Menometrorrhagia 09/25/2016 06/12/2023 Scar 05/23/2016 06/12/2023 Encounters Date Type Department Care Team Description 07/14/2024 11:30 AM EST Clinical Support [facility] [address] [place] [phone] Reyna Willams RN Anxiety (Primary Dx) 07/14/2024 Telephone [facility] [address] [place] [address] Reyna Willams RN UTOX Neg BZO 07/14/2024 Travel 07/10/2024 Refill [facility] [place] [address] Derrick Norton MD Anxiety 07/06/2024 Refill [facility] [address] [place] [address] Derrick Norton MD 06/18/2024 10:30 AM EST Clinical Support [facility] [place] [address] Reyna Willams RN Anxiety (Primary Dx) 06/18/2024 Telephone [facility] [address] [place] [address] Reyna Willams RN Clonazepam count 06/18/2024 Travel 06/18/2024 Telephone [facility] [address] [place] [address] Reyna Willams, JONELLE Recommend DIRECTOR OF AGRONOMY Tier 2 06/09/2024 Refill [facility] [address] [place] [address] Adelina Luke ANP Acute right-sided thoracic back pain; Rib pain on right side 06/09/2024 Refill [facility] [address] [place] [address] Derrick Norton MD Anxiety 05/08/2024 Refill [facility] [address] [place] [address] Derrick Norton MD Anxiety 04/16/2024 10:30 AM EST Clinical Support [address] [address] Reyna Willams RN Anxiety (Primary Dx) 04/16/2024 Travel 04/15/[address] [address] Derrick Norton MD Med Refill from Last 3 Months Immunizations Name Administration Dates Next Due Influenza injectable quadriv alent IIV4 with preservative 02/19/2019,03/07/2017 Influenza injectable quadriv alent preservative free 03/15/2022,03/01/2021,03/04/2020,2011 Influenza, IIV3, injectable 06/07/2011, 0 Influenza, seasonal, injecta ble, preservative free 03/19/2024 [facility] SARS-CoV-2 Vaccination 08/18/2020 Moderna Covid-19 Vaccine 12+ [...] Description 09/09/2024 10:45 AM EDT Office Visit [facility] [address] [place] [address] Name, MD Derrick [address] [place] [address] 10/07/2024 9:00 AM EDT Clinical Support [facility] [address] [place] [address] Reyna Willams, RN Health Maintenance Due Date Last Done Comments [...] 02/24/2025 Tobacco Screening 03/19/2025 03/19/2024 Lipid Panel 07/10/2029 07/10/2024, 0406/2023, 12/11/2022, Additional history exists DTaP/Tdap/Td Vaccines (4 - [...] POCT MARY KAY-14 URINE DRUG SCREEN Routine 07/14/2024 11:29 AM EST Anxiety LIPID PANEL, STANDARD Routine 07/10/2024 8:11 AM EST High cholesterol POCT MARY KAY-14 URINE DRUG SCREEN Routine 06/18/2024 11:14 AM EST Anxiety POCT MARY KAY-14 URINE DRUG SCREEN Routine 04/16/2024 10:30 AM EST Anxiety DRUG MONITORING, BENZODIAZEPINES, QUANTITATIVE, URINE Routine 04/16/2024 10:15 AM EST Anxiety HM MAMMOGRAPHY Routine 03/22/2022 HM COLONOSCOPY Routine 02/24/2015 from Last 3 Months or Most Recently Relevant to Health Maintenance Results * (ABNORMAL) POCT MARY KAY-14 Urine Drug Screen (07/14/2024 11:29 AM EST) Only the most recent of3 resultswithin the time period is included. Benzodiazepines Screen, Urine Negative Urine Urine specimen obtained by clean catch procedure / Unknown 07/14/2024 11:29 AM EST Narrative Reyna Willams RN - 07/14/2024 11:29 AM EST UTOX cup Lot#[id number] Exp. 02/26/26 Internal Pass Control Negative for all substances us Derrick Norton MD POINT OF CARE TEST ENTER/EDIT OR DERABLES Final Result * (ABNORMAL) Lipid Panel, Standard (07/10/2024 8:11 AM EST) Triglycerides 115 <150 mg/dL [facility] Comment:Desirable Triglyceri de: less than 150 mg/dLBorderline High Triglyceride 150-199 mg/dLHigh Triglyceride: 200-499 mg/dLVery High Triglyceride: greater than or equal to 5OO mg/dL Cholesterol 225(H) <200 mg/dL [facility] Comment:Desirable Cholestero l: less than 200 mg/dLBorderline High Cholesterol: 200-239 mg/dLHigh Cholesterol: greater than 239 mg/dL LDL Cholesterol Calculated 143(H) <100 mg/dL [facility] Comment:Desirable LDL: less than 100 mg/dLNear Optimal/Above Optimal LDL: 110- 129 mg/dLBorderline High LDL: 130-159 mg/dLHigh LDL: 160-189 mg/dLVery High LDL: greater than or equal to 190 mg/dL HDL Cholesterol 59 >40 mg/dL [facility] Comment:Desirable HDL: great er than 40 mg/dL Note: This HDL assay may give artificially low results in patients with liver disease. Blood Venous blood specimen / Unknown 07/10/2024 8:11 AM EST 07/10/2024 11:12 AM EST us Derrick Norton MD LAB BLOOD ORDERABLES Final Resul t [facility] [address] [place] [address] [phone] * Drug Monitoring, Benzodiazepines, Quantitative, Urine (04/16/2024 10:15 AM EST) Nordiazepam, GCMS Urine NEGATIVE [facility] Oxazepam, GCMS Urine NEGATIVE [facility] Lorazepam GCMS Urine NEGATIVE [facility] Alprazolam, GCMS Urine NEGATIVE [facility] Alphahydroxytriazolam, GCMS Ur NEGATIVE [facility] Temazepam, GCMS Urine NEGATIVE [facility] Alphahydroxymidazolam, GCMS Ur NEGATIVE [facility] Aminoclonazepam, GCMS Urine 287 (H) [facility] Comment:REFERENCE RANGE: <25 ng/mL Flurazepam Metabolite,GCMS Ur NEGATIVE [facility] Benzodiazepines Comments SEE NOTE [facility] Comment:This drug testing is for medical treatment only.Analysis was performed as non-forensic testing andthese results should be used only by healthcareproviders to render diagnosis or treatment, or tomonitor progress of medical conditions.Benzodiazepines Notes:Aminoclonazepam detected is consistent with the use ofthe drug Clonazepam.LDT Notes:Confirmation tests were developed and their analyticalperformance characteristics have been determined by[employer]. It has not been cleared or approvedby the FDA. This assay has been validated pursuant tothe CLIA regulations and is used for clinical purposes.Healthcare Providers needing Interpretation assistance,please contact us at [phone] ( )M- F, 8am to 10pm ESTTHIS TEST PERFORMED AT:[facility] [place] [phone] DIRECTOR: SRINIVASAN PHILLIPS MD Urine (Urine, Random) 04/16/2024 10:15 AM EST 04/16/2024 5:50 PM EST us Derrick Norton MD LAB URINE ORDERABLES Final Resul t [facility] [address] [place] [phone] * Hm Mammography (03/22/2022) Mammogram performed Anatomical Region Laterality Modality Other us Historical Provider HEALTH MAINTENANCE Final Result * Colonoscopy (02/24/2015) Colonoscopy Normal Normal us Historical Provider HEALTH MAINTENANCE Final Result from Last 3 Months or Most Recently Relevant to Health Maintenance Insurance [facility] C3 HSN PARTIAL Care Teams Cane Pusher Relationship Specialty Start Date End Date Name, MD Derrick [address] [place] [address] PCP - General Family Medicine 08/20/15
--- OUTSIDE RECORDS SUMMARY | 2024-07-14 14:25 | XMS_ITS | Encounter Summary ---
Author Organization [employer] [facility] Address [address] [facility] 7t [place] [address] Care Team Providers Care Plugging Machine Operator Name Role Phone Name, Derrick SIMS Primary Care Provider [phone] Reason for Visit * Reason Onset Date Comments Recommend PATTERN FILER Tier 2 06/18/2024 Encounter Details Date Type Department Care Team ([facility] st Contact Info) Description 06/18/2024 Telephone [facility] [address] [place] [address] Reyna Willams, JONELLE Recommend PATTERN FILER Tier 2 Social History Tobacco Use Types [...] RN - 06/18/2024 7:28 AM EST What PATTERN FILER Tier would you like this patient to be? I recommend Tier 2, please let me know if you agree or would rather patient be in another PATTERN FILER Tier. Tier 1 = HIGH RISK, Monthly PATTERN FILER visits Tier 2 = MODerate RISK, Q3 Month visits Tier 3 = LOW RISK = Q4-6 month visits documented in this encounter Plan of Treatment Upcoming Encounters Date Type Department Care Team (Late st Contact Info) Description 09/09/2024 10:45 AM EDT Office Visit [address] [address] Name, MD Derrick [address] [place] [address] 10/07/2024 9:00 AM EDT Clinical Support [facility] [address] [place] [address] Reyna Willams RN documented as of this encounter Visit Diagnoses Not on filedocumented in this encounter Additional Health Concerns Assessment Noted Time PHQ-9 Depression Total Score: 6 09/06/19 24 9:26 AM EDT documented as of this encounter Care Teams Plugging Machine Operator Relationship Specialty Start Date End Date Name, MD Derrick [address] [place] [phone] PCP - General Family Medicine 08/20/15 documented as of this encounter
--- OUTSIDE RECORDS SUMMARY | 2024-07-14 14:25 | XMS_ITS | Encounter Summary ---
Author Organization [employer] [facility] Address [address] [facility] 7t [place] [address] Care Team Providers Care Manager Of Enterprise Name Role Phone Name, Derrick SIMS Primary Care Provider [phone] Reason for Visit * Reason Onset Date Comments Clonazepam count 06/18/2024 Encounter Details Date Type Department Care Team ([facility] st Contact Info) Description 06/18/2024 Telephone [facility] [address] [place] [address] [phone] Reyna Willams RN Clonazepam count Social History [...] - 06/18/2024 11:20 AM EST Pt had FILLING MACHINE TENDER RV appt today Clonazepam count was 29.5, [...] Clonazepam at some point. Coming back for FILLING MACHINE TENDER visit 07/14/24. documented in this encounter Plan of Treatment Upcoming Encounters Date Type Department Care Team (Late st Contact Info) Description 09/09/2024 10:45 AM EDT Office Visit [facility] [address] [place] [address] Name, MD Derrick [address] [place] [address] 10/07/2024 9:00 AM EDT Clinical Support [address] [address] Reyna Willams RN documented as of this encounter Visit Diagnoses Not on filedocumented in this encounter Additional Health Concerns Assessment Noted Time PHQ-9 Depression Total Score: 6 09/06/19 24 9:26 AM EDT documented as of this encounter Care Teams Manager Of Enterprise Relationship Specialty Start Date End Date Name, MD Derrick [address] [place] [address] PCP - General Family Medicine 08/20/15 documented as of this encounter
--- OUTSIDE RECORDS SUMMARY | 2024-07-14 14:25 | XMS_ITS | Encounter Summary ---
Author Organization [employer] [facility] Address [address] [facility] 7t [place] [address] Care Team Providers Care Nuclear Pharmacist Name Role Phone Name, Derrick SIMS Primary Care Provider [phone] Reason for Visit * Reason Onset Date Comments Med Refill 01/26/2023 Encounter Details Date Type Department Care Team ([facility] st Contact Info) Description 01/26/2023 Telephone [facility] [address] [place], [place] [phone] Name, MD Derrick [address] [place], [place] [phone] Med Refill Social History Tobacco Use Types [...] Description 09/09/2024 10:45 AM EDT Office Visit [facility] [address] [place] [address] Name, MD Derrick [address] [place] [address] 10/07/2024 9:00 AM EDT Clinical Support [address] [address] Reyna Willams, RN documented as of this encounter Visit Diagnoses Not on filedocumented in this encounter Additional Health Concerns Assessment Noted Time PHQ-9 Depression Total Score: 0 05/15/20 22 3:29 PM EST documented as of this encounter Care Teams Nuclear Pharmacist Relationship Specialty Start Date End Date Name, MD Derrick [address] [place] [address] PCP - General Family Medicine 08/20/15 documented as of this encounter
--- OUTSIDE RECORDS SUMMARY | 2024-07-14 14:25 | XMS_ITS | Encounter Summary ---
Author Organization [facility] Address [address] [facility] 7t [place] [address] Care Team Providers Care Software Engineering Specialist Name Role Phone Name, Derrick SIMS Primary Care Provider Reason for Visit * Reason Onset Date Comments Reschedule 04/23/2023 Encounter Details Date Type Department Care Team ([facility] st Contact Info) Description 04/23/2023 Telephone [facility] MEDICINE [address] [place], [place] [phone] Name, MD Derrick [address] [place], [place] [phone] Reschedule Social History Tobacco Use Types Packs/Day [...] requesting r/s 04/09/2023 f/u appt with PCP, tech writer attempted to schedule, no availability. documented in this encounter Plan of Treatment Upcoming Encounters Date Type Department Care Team (Late st Contact Info) Description 09/09/2024 10:45 AM EDT Office Visit [address] [address] Name, MD Derrick [address] [place] [address] 10/07/2024 9:00 AM EDT Clinical Support [address] [address] Reyna Willams, JONELLE documented as of this encounter Visit Diagnoses Not on filedocumented in this encounter Additional Health Concerns Assessment Noted Time PHQ-9 Depression Total Score: 0 05/15/20 22 3:29 PM EST documented as of this encounter Care Teams Software Engineering Specialist Relationship Specialty Start Date End Date Name, MD Derrick [address] [place] [phone] PCP - General Family Medicine 08/20/15 documented as of this encounter
--- OUTSIDE RECORDS SUMMARY | 2024-07-14 14:26 | XMS_ITS | Encounter Summary ---
Author Organization [employer] Address [address] [facility] 7t [place] [address] Care Team Providers Care Vessel Crew Member Name Role Phone Name, Derrick SIMS Primary Care Provider [phone] Encounter Details Date Type Department Care Team (Latest Contact Info) Description 07/14/2024 Travel Social History Tobacco Use Types Packs/Day [...] Description 09/09/2024 10:45 AM EDT Office Visit [facility] MEDICINE [address] [place] [phone] Name, MD Derrick [address] [place] [address] 10/07/2024 9:00 AM EDT Clinical Support [address] [address] Reyna Willams RN documented as of this encounter Visit Diagnoses Not on filedocumented in this encounter Additional Health Concerns Assessment Noted Time PHQ-9 Depression Total Score: 6 09/06/19 24 9:26 AM EDT documented as of this encounter Care Teams Vessel Crew Member Relationship Specialty Start Date End Date Name, MD Derrick [address] [place] [address] PCP - General Family Medicine 08/20/15 documented as of this encounter
--- OUTSIDE RECORDS SUMMARY | 2024-07-14 14:26 | XMS_ITS | Encounter Summary ---
Author Organization [facility] Address [address] [facility] 7t [place] [address] Care Team Providers Care Testing Shaking Shipping Name Role Phone Name, Derrick SIMS Primary Care Provider [phone] Reason for Visit * Reason Comments ELECTRICAL ELECTRONICS ENGINEERS RV ELECTRICAL ELECTRONICS ENGINEERS RV Encounter Details Date Type Department Care Team (Latest Contact Info) Description 07/14/2024 11:30 AM EST Clinical Support [facility] [address] [place] [address] Reyna Willams RN Anxiety (Primary Dx) Social [...] Progress Notes * Reyna Willams RN - 07/14/2024 11:30 AM EST S: Pt here for ELECTRICAL ELECTRONICS ENGINEERS Revisit, accompanied by her who also assisted [...] to meets with her therapist regularly. She is scheduled to see her new psychiatrist Josi Duran 07/17/24, who she said will be taking over her Clonazepam RX. O: ELECTRICAL ELECTRONICS ENGINEERS Tier 2. Pt currently prescribed Clonazepam 1mg Q12hr PRN. STUD DRIVER verified today. Rx last filledon 07/11/24. Pill count performed. Pt has 49 pills as this time, 49 at least expected. Medication is not overused by patient. UTOX completed. Negative for all substances: AMP, BAR, BUP, BZO, PARVEEN, FTY, MDMA, MET, MOP, MTD, OXY, PCP, TCA, THC. UTOX not as expected. Reviewed UTOX results. Explained I will send urine out for confirmation and call them if results come back abnormal. Pt and awarethat if psychiatrist starts prescribing her Clonazepam, she can cancel her appt with me. Will update PCP on UTOX results. Last PCP visit was 03/19/24, scheduled next 09/09/24. A: ELECTRICAL ELECTRONICS ENGINEERS Contract Revisit, Chronic BZO use r/t anxiety. P: Pt to continue taking medication only as prescribed; Next ELECTRICAL ELECTRONICS ENGINEERS RV appointment scheduled for 10/07/24 @ 9am, F/U sooner PRN. Appointment reminder given. Pt verbalized understanding and agreed to plan documented in this encounter Plan of Treatment Upcoming Encounters Date Type Department Care Team ([facility] st Contact Info) Description 09/09/2024 10:45 AM EDT Office Visit [address] [address] NameDerrick MD [address] [place] [address] 10/07/2024 9:00 AM EDT Clinical Support [address] [address] Reyna Willams RN Scheduled Orders Name Type Priority Associated Diagnoses Orde r Schedule Drug Monitoring, Benzodiazepines, Quantitative, Urine Lab Routine Anxiety Ordered: 07/14/2024 documented as of this encounter Procedures Procedure Name Priority Date/Time Associated Diagnosis Comments POCT MARY KAY-14 URINE DRUG SCREEN Routine 07/14/2024 11:29 AM EST Anxiety documented in this encounter Results * (ABNORMAL) POCT MARY KAY-14 Urine Drug Screen (07/14/2024 11:29 AM EST) Benzodiazepines Screen, Urine Negative Urine Urine specimen obtained by clean catch procedure / Unknown 07/14/2024 11:29 AM EST Narrative Reyna Willams RN - 07/14/2024 11:29 AM EST UTOX cup Lot#[id number] Exp. 02/26/26 Internal Pass Control Negative for all substances Derrick Norton MD POINT OF CARE TEST ENTER/EDIT OR DERABLES Final Result documented in this encounter Visit Diagnoses Diagnosis Anxiety- Primary Anxiety state, unspecified documented in this encounter Additional Health Concerns Assessment Noted Time PHQ-9 Depression Total Score: 6 09/06/19 24 9:26 AM EDT documented as of this encounter Care Teams Testing Shaking Shipping Relationship Specialty Start Date End Date Derrick Norton MD [address] [place] [address] PCP - General Family Medicine 08/20/15 documented as of this encounter
--- OUTSIDE RECORDS SUMMARY | 2024-07-14 14:26 | XMS_ITS | Encounter Summary ---
Author Organization [employer] Address [address] [facility] 7t [place] [address] Care Team Providers Care English And Reading Instructor Name Role Phone Name, Derrick SIMS Primary Care Provider [phone] Encounter Details Date Type Department Care Team ([facility] st Contact Info) Description 07/18/2023 Telephone [facility] MEDICINE [address] [place], [place] [phone] Name, MD Derrick [address] [place] [address] Social History Tobacco Use Types Packs/Day Years [...] the past 12 months, has t he [employer], gas, oil or water [employer] threatened to shut off services in your [...] Description 09/09/2024 10:45 AM EDT Office Visit [address] [address] Name, MD Derrick [address] [place] [address] 10/07/2024 9:00 AM EDT Clinical Support [address] [address] Reyna Willams, JONELLE documented as of this encounter Visit Diagnoses Not on filedocumented in this encounter Additional Health Concerns Assessment Noted Time PHQ-9 Depression Total Score: 0 05/15/20 22 3:29 PM EST documented as of this encounter Care Teams English And Reading Instructor Relationship Specialty Start Date End Date NameDerrick MD [address] [place] [address] PCP - General Family Medicine 08/20/15 documented as of this encounter
--- OUTSIDE RECORDS SUMMARY | 2024-07-14 14:26 | XMS_ITS | Encounter Summary ---
Author Organization [facility] Address [address] [facility] 7t [place] [address] Care Team Providers Care Payroll Professional Name Role Phone Name, Derrick SIMS Primary Care Provider [phone] Reason for Visit * Reason Onset Date Comments Med Refill 07/10/2024 Encounter Details Date Type Department Care Team ([facility] st Contact Info) Description 07/10/2024 Refill [facility] MEDICINE [address] [place], [place] [phone] Name, MD Derrick [address] [place] [address] Anxiety Social History Tobacco Use Types Packs/Day Years [...] encounter Miscellaneous Notes * Telephone Encounter - Andrea Bebeto - 07/10/2024 9:35 AM EST TC from pt requesting medication refill. Medications needing refill : clonazePAM (KlonoPIN) 1 MG tablet To be sent to: [facility]/pharmacy #[id number] - [id number] documented in this encounter Plan of Treatment Upcoming Encounters Date Type Department Care Team (Late st Contact Info) Description 09/09/2024 10:45 AM EDT Office Visit [facility] MEDICINE [address] [place] [address] Name, MD Derrick [address] [place] [address] 10/07/2024 9:00 AM EDT Clinical Support [facility] MEDICINE [address] [place] [address] Reyna Willams, JONELLE documented as of this encounter Visit Diagnoses Diagnosis Anxiety Anxiety state, unspecified documented in this encounter Additional Health Concerns Assessment Noted Time PHQ-9 Depression Total Score: 6 09/06/19 24 9:26 AM EDT documented as of this encounter Care Teams Payroll Professional Relationship Specialty Start Date End Date Name, MD Derrick [address] [place] [phone] PCP - General Family Medicine 3/18/16 documented as of this encounter
--- OUTSIDE RECORDS SUMMARY | 2024-07-14 14:26 | XMS_ITS | Encounter Summary ---
Author Organization [employer] Address [address] [facility] 7t [place] [address] Care Team Providers Care Leather Colorer Name Role Phone Name, Derrick SIMS Primary Care Provider [phone] Encounter Details Date Type Department Care Team [...] 10:45 AM EDT Office Visit [facility] MEDICINE [address] [place] [address] Name, MD Derrick [address] [place] [address] 10/07/2024 9:00 AM EDT Clinical Support [address] [address] Reyna Willams RN documented as of this encounter Visit Diagnoses Not on filedocumented in this encounter Additional Health Concerns Assessment Noted Time PHQ-9 Depression Total Score: 6 09/06/19 24 9:26 AM EDT documented as of this encounter Care Teams Leather Colorer Relationship Specialty Start Date End Date Name, MD Derrick [address] [place] [phone] PCP - General Family Medicine 08/20/15 documented as of this encounter
--- OUTSIDE RECORDS SUMMARY | 2024-07-14 14:26 | XMS_ITS | Encounter Summary ---
Author Organization [employer] 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 FYI, she's seeing her new psychiatrist 07/17/24, who they said will start prescribing her Clonazepam. documented in this encounter Plan of Treatment Upcoming Encounters Date Type Department Care Team (Late st Contact Info) Description 09/09/2024 10:45 AM EDT Office Visit [facility] MEDICINE [address] [place] [address] Name, MD Derrick [address] [place] [address] 10/07/2024 9:00 AM EDT Clinical Support [facility]IC[facility] [address] [place] [address] Reyna Willams, RN documented as of this encounter Visit Diagnoses Not on filedocumented in this encounter Additional Health Concerns Assessment Noted Time PHQ-9 Depression Total Score: 6 09/06/19 24 9:26 AM EDT documented as of this encounter Care Teams Project Intern Relationship Specialty Start Date End Date NameDerrick MD [address] [place] [address] PCP - General Family Medicine 08/20/15 documented as of this encounter
[2024-07-18 10:57] LABS: Alphahydroxymidazolam,GCMS Ur NEGATIVE; Alphahydroxytriazolam, GCMS Ur NEGATIVE; Alprazolam, GCMS Urine NEGATIVE; Aminoclonazepam, GCMS Urine 62; Flurazepam Metabolite,GCMS Ur NEGATIVE; Lorazepam GCMS Urine NEGATIVE; Nordiazepam, GCMS Urine NEGATIVE; Oxazepam, GCMS Urine NEGATIVE; Temazepam, GCMS Urine NEGATIVE
== END 2024-07-14 13:24 | disposition home or self-care (01) ==
LOC: HO.HHCLNP 13:23
PROVIDERS: Visit Provider Internal Medicine Geriatric Medicine
DX: F41.9 Anxiety disorder, unspecified (principal)
CPT/HCPCS: 80346

== ENCOUNTER 2024-10-10 15:02 | Outpatient (REF) | payer MEDICAID, SELFPAY ==
--- NOTE | ~2024-10-10 | US_ITS ---
EXAMINATION: US KIDNEY BILATERAL HISTORY: angiomyolipoma of right kidney TECHNIQUE: Real-time grayscale ultrasound imaging of the kidneys was performed and images were reviewed. COMPARISON: Comparison is made with the prior examination dated 08/07/2019. FINDINGS: Right kidney: The right kidney measures 9.8 x 4.4 x 4.0 cm. Renal parenchymal echotexture and thickness are normal. Again seen is an echogenic mass in the interpolar region which measures 1.8 x 1.4 x 1.7 cm (previously 2.7 x 2.1 x 2.5 cm), which likely represents an angiomyolipoma. There is no hydronephrosis or renal calculi. Left Kidney: The left kidney measures 9.5 x 4.4 x 4.6 cm. Renal parenchymal echotexture and thickness are normal. There are no masses. There is no hydronephrosis or renal calculi. US/US renal BI IMPRESSION: Interval decrease in size of the previously seen right renal echogenic mass, presumed to be an angiomyolipoma. This could be confirmed with MRI or CT. Electronically signed by: Abimael Sparks MD 10/13/2024 08:03 AM EDT
== END 2024-10-10 15:03 | disposition home or self-care (01) ==
LOC: HO.US 15:02
PROVIDERS: PCP Internal Medicine Geriatric Medicine; Visit Provider Internal Medicine Geriatric Medicine
DX: D17.71 Benign lipomatous neoplasm of kidney (principal)
CPT/HCPCS: 76775

== ENCOUNTER → 2024-10-10 15:28 | Outpatient (BNV) | payer MEDICAID, SELFPAY | PROVIDERS: PCP Internal Medicine Geriatric Medicine; Visit Provider Radiology Diagnostic Radiology | DX: D17.71 Benign lipomatous neoplasm of kidney (principal) | CPT/HCPCS: 76775 ==

== ENCOUNTER 2024-10-13 17:34 | Outpatient (REF) | payer MEDICAID, SELFPAY ==
--- OUTSIDE RECORDS SUMMARY | 2024-10-13 17:36 | XMS_ITS | Encounter Summary ---
Author Organization [employer] Address [address] [place] [address] 7t [place] [address] Care Team Providers Care Boat Hop Name Role Phone Name, Derrick SIMS Primary Care Provider [phone] Encounter Details Date Type Department Care Team (Late st Contact Info) Description 11/14/2022 Abstract [facility] MEDICINE [address] [place] [address] Name, MD Derrick [address] [place] [address] Social History Tobacco Use Types Packs/Day Years [...] as of this encounter Plan of Treatment Not on file documented as of this encounter Visit Diagnoses Not on filedocumented in this encounter Additional Health Concerns Assessment Noted Time PHQ-9 Depression Total Score: 0 05/15/20 22 3:29 PM EST documented as of this encounter Care Teams Boat Hop Relationship Specialty Start Date End Date Name, MD Derrick [address] [place] [address] PCP - General Family Medicine 08/20/15 documented as of this encounter
--- OUTSIDE RECORDS SUMMARY | 2024-10-13 17:36 | XMS_ITS | Clinical Summary ---
Author Organization [employer] Address [address] [place] [address] 7[address] [place] [address] Care Team Providers Care Dump Truck Operator Name Role Phone Name, Derrick SIMS Primary Care Provider [phone] Allergies No known active allergies Medications acetic acid-hydrocort isone (Vosol-HC) otic solution 2 drops every 6 (six) hours. 04/05/20 21 Active fluticasone (Flonase) 50 MCG/ACT nasal sprayIndicatio ns:Viral upper respiratory tract infection Administer 1 spray into each nostril in the morning. 16 g 2 06/22/19 23 Active mometasone (Elocon) 0.1 % ointment Apply [...] MORNING 30 capsule 11 07/07/19 25 Active atorvastatin (Lipitor) 20 MG tablet Take 1 tablet (20 mg) by mouth Once per day. 30 tablet 11 07/24/19 25 026 Active propranolol LA (Inderal LA) 60 MG 24 hr capsule Take 1 capsule (60 mg) by mouth Once per day. Do not crush, chew, or split. 30 capsule 11 09/10/19 25 026 Active nabumetone (Relafen) 500 MG tablet Take 1 tablet (500 mg) by mouth if needed in the morning and at bedtime for mild pain. 60 tablet 09/10/19 25 026 Active clonazePAM (KlonoPIN) 1 MG tabletIndicati ons:Anxiety Take 1 tablet (1 mg) by mouth every 12 (twelve) hours if needed for anxiety for up to 28 days. Do not start before October 04, 2024. 56 tablet 10/05/19 25 025 Active clonazePAM (KlonoPIN) 1 MG tabletIndicati ons:Anxiety Take 1 tablet (1 mg) by mouth every 12 (twelve) hours if needed for anxiety for up to 28 days. 56 tablet 09/06/19 25 025 Discontinued(Re order (will not trigger [...] Encounters Date Type Department Care Team Description 10/13/2024 1:45 PM EDT Procedure Visit [address] [address] Ana Madrigal CNM Cervical cancer screening (Primary Dx); Fibroids 10/13/2024 Travel 10/10/2024 Orders Only [facility] [place] [address] Derrick Norton MD 10/03/[address] [address] Derrick Norton MD Anxiety 09/12/[address] [place] [address] Cristian Soriano [place] Appointment Request 09/11/2024 Telephone [facility] [place] [address] Derrick Norton MD telephone call 09/09/2024 10:45 AM EDT Office [address] [facility] [place] [address] Derrick Norton MD High cholesterol (Primary Dx); Primary hypertension; Essential tremor; Angiomyolipoma of right kidney; Screening for cervical cancer; Encounter for screening mammogram for breast cancer; Chronic midline low back pain with right-sided sciatica 09/09/2024 Travel 09/08/[address] [facility] MEDICINE [address] [place] [address] Cristian Soriano MA chart prep 09/05/[address] [facility] MEDICINE [address] [place] [address] Derrick Norton MD Anxiety 08/15/2024 Population Health Risk Score [facility] [address] [place] [phone] Provider, Population Health Generic 08/06/[address] [facility] MEDICINE [address] [place] [address] Derrick Norton MD Anxiety 07/24/[address] [facility] MEDICINE [address] [place], [place] [phone] Derrick Norton MD from Last 3 Months Immunizations Name Administration [...] oid, preservative free, adsorbed 10/21/2014 Tdap 10/09/2008 Family History Medical History Relation Name Comments Breast cancer Neg Hx Colon cancer Neg Hx Ovarian cancer Neg Hx Social History Tobacco Use Types Packs/Day Years Used Date Smoking Tobacco: Some Days Cigarettes Passive Smoke Exposure: Never Smokeless Tobacco: Never Tobacco Cessation:Ready to Q uit: Not Asked; Counseling Given: Not Answered Alcohol Use Standard Drinks/Week Comments Never 0 (1 standard drink = 0.6 oz pur e alcohol) Depression Answer Date Recorded Patient Health Questionnaire-9 Score 11 09/09/2024 Patient Health Questionnaire-9 Score 11 09/09/2024 Last PHQ-9: Questionnaire Data Not on file 0 09/09/2024 Housing Stability Answer Date Recorded What is your housing situation today? I have parrishwally aldrich 09/06/[address] you [...] Date Recorded Patient Health Questionnaire-2 Score 4 09/09/2024 Comments No Sex and Gender Information Value Date Recorded Sex Assigned at Female 04/03/2022 10:16 AM EDT Legal Sex Female 10:16 AM EDT Gender Identity Female 04/03/2022 10:16 AM EDT Sexual Orientation Straight 04/03/2022 10 :16 AM EDT Last Filed Vital Signs Vital Sign Reading Time Taken Comments Blood Pressure 135/93 10/13/2024 1:47 PM EDT Pulse 67 10/13/2024 1:47 PM EDT Temperature 36.4 ??C (97.5 ??F) 10/13/2024 1:47 PM ED T Respiratory Rate 20 10/13/2024 1:47 PM EDT Oxygen Saturation 99% 10/13/2024 1:47 PM EDT Inhaled Oxygen Concentration - - Weight 59.5 kg (131 lb 3.2 oz) 10/13/2024 1:47 P M EDT Height 157.5 cm (5' 2 ) 10/13/2024 1:47 PM EDT Body Mass Index 24 10/13/2024 1:47 PM EDT Plan of Treatment Health Maintenance Due Date Last Done Comments CT Colonography 1964 FIT DNA/Cologuard 1964 FIT 1964 FOBT 1965 HIV Screening 1965 Sigmoidoscopy 1964 Hepatitis C Screening 1982 Pap Smear 1985 Cervical Cancer Screening 1994 HPV/Cotest 1994 Zoster Vaccines (1 of 2) 2014 COVID-19 Vaccine ( season) 2024 05/09/2023, 05/12/2022, 10/11/2021, Additional history exists SDOH Screening 09/05/2024 09/06/2023 Alcohol/Substance Use Screening 12/13/2024 12/14/2023 Colonoscopy 02/24/2025 02/24/2015, 02/24/2015 Colorectal Cancer Screening 02/24/2025 Depression Screening 09/09/2025 09/09/2024, 09/10/19 25 Tobacco Screening 10/13/2025 10/13/2024 Mammogram 09/18/2026 09/18/2024, 09/02, 09/18/2024, Additional history exists Lipid Panel 07/10/2029 07/10/2024, 09/02, 12/11/2022, Additional history exists DTaP/Tdap/Td Vaccines (4 [...] Procedure Name Priority Date/Time Associated Diagnosis Comments US RENAL BI Routine 10/10/2024 3:28 PM EDT BI MAMMOGRAM SCREENING TOMOSYNTHESIS BILATERAL Routine 09/18/2024 Encounter for screening mammogram for breast cancer LIPID PANEL, STANDARD Routine 07/10/2024 8:11 AM EST High cholesterol HM COLONOSCOPY Routine 02/24/2015 from Last 3 Months or Most Recently Relevant to Health Maintenance Results * US RENAL BI (10/10/2024 3:28 PM EDT) Anatomical Region Laterality Modality Abdomen Ultrasound 10/10/2024 3:28 PM EDT Narrative 10/13/2024 8:05 AM EDT ? [facility] ?[address] ?[place] [address] ? Ultrasound Report ? Signed ? Patient: Melody,Eduvigis ?MR#: [id number] ?? [id number] ? : 1965 ?Acct:[id number] ? Age/Sex: 59 / F ?ADM Date: 10/10/ ? Loc: HO.US ? Attending : Derrick Norton MD ? Ordering Physician: Derrick Norton MD ?? Date of Service: 10/10/24 ?? Procedure(s): US renal BI ?? Accession Number(s): [id number] ? cc: Name,Derrick SIMS ? EXAMINATION: ??US KIDNEY BILATERAL ? HISTORY: angiomyolipoma of right kidney ? TECHNIQUE: Real-time grayscale ultrasound imaging of the kidneys was ?? performed and images were reviewed. ? COMPARISON: Comparison is made with the prior examination dated ?? 08/07/2019. ? FINDINGS: ? Right kidney: ??The right kidney measures 9.8 x 4.4 x 4.0 cm. ??Renal ?? parenchymal echotexture and thickness are normal. ??Again seen is an ?? echogenic mass in the interpolar region which measures 1.8 x 1.4 x 1.7 ?? cm (previously 2.7 x 2.1 x 2.5 cm), which likely represents an ?? angiomyolipoma. ??There is no hydronephrosis or renal calculi. ? Left Kidney: ??The left kidney measures 9.5 x 4.4 x 4.6 cm. ??Renal ?? parenchymal echotexture and thickness are normal. ??There are no masses. ?? There is no hydronephrosis or renal calculi. ? US/US renal BI ?? IMPRESSION: ? Interval decrease in size of the previously seen right renal echogenic ?? mass, presumed to be an angiomyolipoma. This could be confirmed with ?? MRI or CT. ? Electronically signed by: ??Abimael Sparks MD ??10/13/2024 08:03 AM EDT ? Dictated By: ?Abimael Sparks MD ? Signed By: ?<Electronically signed by Abimael Sparks MD in OV> ?10/13/24 0803 ? DD/ 1528 ? TD/TT: 10/10/24 1533 ? Tripe Washer: ? Procedure Note Jose Alberto Jenkins - 10/13/[address] [address] Ultrasound Report Signed Patient: Jazmin Oliver#: [id number] : 1965Acct:[id number] Age/Sex: 59 / FADM Date: 10/10/24 Loc: HO.US Attending Dr: Derrick Norton MD Ordering Physician: Derrick Norton MD Date of Service: 10/10/24 Procedure(s): US renal BI Accession Number(s): [id number] cc: Derrick Norton MD EXAMINATION: US KIDNEY BILATERAL HISTORY: angiomyolipoma of right kidney TECHNIQUE: Real-time grayscale ultrasound imaging of the kidneys was performed and images were reviewed. COMPARISON: Comparison is made with the prior examination dated 08/07/2019. FINDINGS: Right kidney: The right kidney measures 9.8 x 4.4 x 4.0 cm. Renal parenchymal echotexture and thickness are normal. Again seen is an echogenic mass in the interpolar region which measures 1.8 x 1.4 x 1.7 cm (previously 2.7 x 2.1 x 2.5 cm), which likely represents an angiomyolipoma. There is no hydronephrosis or renal calculi. Left Kidney: The left kidney measures 9.5 x 4.4 x 4.6 cm. Renal parenchymal echotexture and thickness are normal. There are no masses. There is no hydronephrosis or renal calculi. US/US renal BI IMPRESSION: Interval decrease in size of the previously seen right renal echogenic mass, presumed to be an angiomyolipoma. This could be confirmed with MRI or CT. Electronically signed by: Abimael Sparks MD 10/13/2024 08:03 AM EDT Dictated By: Abimael Sparks MD Signed By: <Electronically signed by Abimael Sparks MD in OV> 10/13/24 0803 DD/ 1528 TD/TT: 10/10/24 1533 Tripe Washer: us Derrick DAVID US PROCEDURES Final Result * BI Mammogram Screening Tomosynthesis Bilateral (09/18/2024) Anatomical Region Laterality Modality Breast Bilateral Mammography us Derrick DAVID BI PROCEDURES Final Result * (ABNORMAL) Lipid Panel, Standard (07/10/2024 8:11 AM EST) Triglycerides 115 <150 mg/dL [facility] Comment:Desirable Triglyceri de: less than 150 mg/dLBorderline High Triglyceride 150-199 mg/dLHigh Triglyceride: 200-499 mg/dLVery High Triglyceride: greater than or equal to 5OO mg/dL Cholesterol 225(H) <200 mg/dL [facility] Comment:Desirable Cholestero l: less than 200 mg/dLBorderline High Cholesterol: 200-239 mg/dLHigh Cholesterol: greater than 239 mg/dL LDL Cholesterol Calculated 143(H) <100 mg/dL [facility] Comment:Desirable LDL: less than 100 mg/dLNear Optimal/Above Optimal LDL: 110- 129 mg/dLBorderline High LDL: 130-159 mg/dLHigh LDL: 160-189 mg/dLVery High LDL: greater than or equal to 190 mg/dL HDL Cholesterol 59 >40 mg/dL [facility] Comment:Desirable HDL: great er than 40 mg/dL Note: This HDL assay may give artificially low results in patients with liver disease. Blood Venous blood specimen / Unknown 07/10/2024 8:11 AM EST 07/10/2024 11:12 AM EST us Derrick Name LAB BLOOD ORDERABLES Final Resul t Performing Organization Address City/State/[facility] Co de Phone Number [facility] [address] [place] [phone] * Colonoscopy (02/24/2015) Colonoscopy Normal Normal Historical Provider HEALTH MAINTENANCE Final Result from Last 3 Months or Most Recently Relevant to Health Maintenance Insurance [facility] C3 HSN PARTIAL Care Teams Dump Truck Operator Relationship Specialty Start Date End Date Name, MD Derrick [address] [place] [id number] PCP - General Family Medicine 08/20/15
--- OUTSIDE RECORDS SUMMARY | 2024-10-13 17:36 | XMS_ITS | Encounter Summary ---
Author Organization [employer] Address [address] [facility] [address]t [place] [address] Care Team Providers Care Ultimate Hoops Referee Name Role Phone Name, Derrick SIMS Primary Care Provider [phone] Encounter Details Date Type Department Care Team ([facility] st Contact Info) Description 07/18/2023 Telephone [facility] [address] [place], [place] [phone] Name, MD Derrick [address] [place] [address] Social History Tobacco Use Types Packs/Day Years [...] documented as of this encounter Care Teams Ultimate Hoops Referee Relationship Specialty Start Date End Date Name, MD Derrick [address] [place] [address] PCP - General Family Medicine 08/20/15 documented as of this encounter
--- OUTSIDE RECORDS SUMMARY | 2024-10-13 17:36 | XMS_ITS | Encounter Summary ---
Author Organization [employer] Address [address] [place] [address] [address] [place] [address] Care Team Providers Care Tube Bender Hand Name Role Phone Name, Derrick SIMS Primary Care Provider [phone] Reason for Referral * Imaging (Routine) - Pending Review Specialty Diagnoses / Procedures Referred By Contac t Referred To Contact Radiology Diagnoses Fibroids Procedures Us Pelvis complete Ana Madrigal CNM [address] [place] [address] Phone: tel: fax: Referral ID Status Reason Start Date Expiration Date V isits Requested Visits Authorized [id number] Pending Review 10/13/2024 10/13/2025 1 1 * Imaging (Routine) - Pending Review Specialty Diagnoses / Procedures Referred By Spike giron Referred To Contact Radiology Diagnoses Fibroids Procedures US Pelvis Transvaginal Ana Madrigal CNM [address] [place] [address] Phone: tel: fax: Referral ID Status Reason Start Date Expiration Date V isits Requested Visits Authorized [id number] Pending Review 10/13/2024 10/13/2025 1 1 Reason for Visit * Reason Comments Gynecologic Exam Encounter Details Date Type Department Care Team (Latest Contact Info) Description 10/13/2024 1:45 PM EDT Procedure Visit [facility] [address] [place] [address] Alex Madrigalanna, CN [address] [place] [address] Cervical cancer screening (Primary Dx); Fibroids Social History Tobacco Use Types Packs/Day Years [...] AM EDT documented as of this encounter Last Filed Vital Signs Vital Sign Reading [...] Mass Index 24 10/13/2024 1:47 PM EDT documented in this encounter Progress Notes * Ana Madrigal, HILARIO - 10/13/2024 1:45 PM EDT Subjective Patient ID: Alanna Oliver is a 59 y.o. female who presents for pap Mammogram BIRADS 1, cat b 09/2024. History of fibroids. No recent pelvic ultrasound or pap on file. She thinks her last pap was 5-6 y ago, no prior abnormal. Menopausal in mid 50s, no bleeding since then. No personal fracture, no parental hip fracture. 1 AMAB partner x 35y, no safety concerns. No vasomotor symptoms. No incontinence symptoms. Review of Systems Genitourinary: Negative for dyspareunia, dysuria, frequency, genital sores, hematuria, menstrual problem, pelvic pain, urgency, vaginal bleeding, vaginal discharge and vaginal pain. No abnormal pap, no abnormal bleeding, no breast pain, no breast mass, no nipple discharge Objective BP (!) 135/93 (BP Location: Left arm, Patient Position: Sitting, BP Cuff Size: Adult) Pulse 67 Temp 97.5 ??F (36.4 ??C) (Temporal) Resp 20 Ht 5' 2 (1.575 m) Wt 131 lb 3.2 oz (59.5 kg) SpO2 99% BMI 24.00 kg/m?? Physical Exam Constitutional: Appearance: Normal appearance. Chest: Comments: Just under 2cm brown ovoid nevus on right breast at 3 o'clock. No recent changes. Abdominal: Comments: Vertical scar from c/s Genitourinary: General: Normal vulva. Labia: Right: No rash, tenderness, lesion or injury. Left: No rash, tenderness, lesion or injury. Vagina: Normal. No signs of injury and foreign body. No vaginal discharge, erythema, tenderness, bleeding or lesions. Cervix: Friability present. No cervical motion tenderness, discharge, lesion, erythema, cervical bleeding or eversion. Uterus: Normal. Not enlarged and not tender. Adnexa: Right adnexa normal and left adnexa normal. Right: No mass, tenderness or fullness. Left: No mass, tenderness or fullness. Comments: Ovaries non palpable bilaterally. Good tone with Kegels, no prolapse with Valsalva Neurological: Mental Status: She is alert. Psychiatric: Mood and Affect: Mood normal. Behavior: Behavior normal. Assessment/Plan Diagnoses and all orders for this visit: Cervical cancer screening - Pap Smear Pap 3 years/co-test 5 years. Routine mammography. Report bleeding. Bone density at 65, sooner if new risk factors Report changes in breast nevus, no suspicious features on today's exam. Fibroids - US Pelvis Transvaginal; Future - Us Pelvis complete; Future Will order ultrasound as precaution. Benign pelvic exam today. Reviewed that fibroids are common, not cancerous growths. No treatment needed if asymptomatic and they often get smaller after menopause. documented in this encounter Plan of Treatment Scheduled Orders Name Type Priority Associated Diagnoses Order Schedule Pap Smear Pathology and Cytology Routine Cervical cancer screening Ordered: 10/13/2024 US Pelvis Transvaginal Imaging Routine Fibroids Expected: 10/13/2024, Expires: 10/13/2025 Us Pelvis complete Imaging Routine Fibroids Expected: 10/13/2024, Expires: 10/13/2025 documented as of this encounter Visit Diagnoses Diagnosis Cervical cancer screening- Primary Screening for malignant neoplasm of the cervix Fibroids Leiomyoma of uterus, unspecified documented in this encounter Additional Health Concerns Assessment Noted Time PHQ-9 Depression Total Score: 11 09/09/ 025 11:40 AM EDT documented as of this encounter Care Teams Tube Bender Hand Relationship Specialty Start Date End Date Name, MD Derrick [address] [place] [id number] PCP - General Family Medicine 08/20/15 documented as of this encounter
--- OUTSIDE RECORDS SUMMARY | 2024-10-13 17:36 | XMS_ITS | Encounter Summary ---
Author Organization [employer] Address [address] [place] [address] 7t [place] [address] Care Team Providers Care Substance Abuse Specialist Name Role Phone Name, Derrick SIMS Primary Care Provider [phone] Reason for Visit * Reason Onset Date Comments Med Refill 12/04/2022 Encounter Details Date Type Department Care Team ([facility] st Contact Info) Description 12/04/2022 Telephone [facility] MEDICINE [address] [place], [place] [phone] Name, MD Derrick [address] [place] [address] Med Refill Social History Tobacco Use Types [...] documented in this encounter Plan of Treatment Not on file documented as of this encounter Visit Diagnoses Not on filedocumented in this encounter Additional Health Concerns Assessment Noted Time PHQ-9 Depression Total Score: 0 05/15/20 22 3:29 PM EST documented as of this encounter Care Teams Substance Abuse Specialist Relationship Specialty Start Date End Date Name, MD Derrick [address] [place] [address] PCP - General Family Medicine 08/20/15 documented as of this encounter
--- OUTSIDE RECORDS SUMMARY | 2024-10-13 17:36 | XMS_ITS | Encounter Summary ---
Author Organization [employer] Address [address] [facility] 7t [place] [address] Care Team Providers Care Infantry Operations Specialist Name Role Phone Name, Derrick SIMS Primary Care Provider Reason for Visit * Reason Onset Date Comments Reschedule 04/23/2023 Encounter Details Date Type Department Care Team ([facility] st Contact Info) Description 04/23/2023 Telephone [facility] MEDICINE [address] [place], [place] [phone] Name, MD Derrick [address] [place] [address] Reschedule Social History Tobacco Use Types Packs/Day [...] requesting r/s 04/09/2023 f/u appt with PCP, screen writer attempted to schedule, no availability. documented in this encounter Plan of Treatment Not on file documented as of this encounter Visit Diagnoses Not on filedocumented in this encounter Additional Health Concerns Assessment Noted Time PHQ-9 Depression Total Score: 0 05/15/20 22 3:29 PM EST documented as of this encounter Care Teams Infantry Operations Specialist Relationship Specialty Start Date End Date Name, MD Derrick [address] [place] [address] PCP - General Family Medicine 08/20/15 documented as of this encounter
--- OUTSIDE RECORDS SUMMARY | 2024-10-13 17:36 | XMS_ITS | Clinical Summary ---
Author Organization [facility] Address [address] [place] [phone] Phone Care Team Providers Care Peanut Cleaner Name Role Phone Name, Derrick SIMS Primary Care Provider [phone] Encounters Date Type Department Care Team Description 09/18/2024 9:15 AM EDT - 09/18/2024 11:59 PM EDT Hospital [facility] [address] [phone] Encounter for screening mammogram for malignant neoplasm of breast Discharge Disposition: Home or Self Care from Last 3 Months Surgical History Surgery Date Site/Laterality Comments SECTION PROCEDURE: HISTORICAL ; COMMENT: 3 COLONOSCOPY 02/24/2015 PROCEDURE: HISTORICAL COLONOSCOPY; COMMENT: Normal examination Medical History Medical History Date Comments Generalized headaches DX:General ized headaches Hypertension 10/13/2011 DX:Hypertension Family History Medical History Relation Name Comments Blindness Neg Hx Breast cancer Neg Hx Cataracts Neg Hx Glaucoma Neg Hx Macular degeneration Neg Hx Strabismus Neg Hx Relation Name Status Comments Brother 1 Alive Brother 2 Alive Brother 3 Alive Brother 4 Alive Brother 5 Father Mother Alive high cholestero l, HTN, CAD Sister 1 Alive Sister 2 Alive Sister 3 Alive Sister 4 Alive Son 1 Alive sz Son 2 Alive Son 3 Alive Social History Tobacco Use Types Packs/Day Years Used Date Smoking Tobacco: Never Alcohol Use Standard Drinks/Week Comments Yes 0 (1 standard drink = 0.6 oz pur e alcohol) Comments No Sex and Gender Information Value Date Recorded Sex Assigned at Not on file Legal Sex Female 4:27 PM EST Gender Identity Not on file Sexual Orientation Not on file Obstetrics History Para Term AB IAB SAB Ectopic Multiple Livin g Live Births 3 Last Filed Vital Signs Vital Sign Reading Time Taken Comments Blood Pressure - - Pulse - - Temperature - - Respiratory Rate - - Oxygen Saturation - - Inhaled Oxygen Concentration - - Weight 72.6 kg (160 lb) 09/18/2024 9:36 AM EDT Height 167.6 cm (5' 6 ) 09/18/2024 9:36 AM EDT Body Mass Index 25.82 09/18/2024 9:36 AM EDT Plan of Treatment Health Maintenance Due Date Last Done Comments Cervical Cancer Screening: Pap Smear 1985 Zoster Vaccines (1 of 2) 2014 Colorectal Cancer Screening: Colonoscopy 05/13/2022 HIV Screening 05/13/2022 Hepatitis C Screening 05/13/2022 Social Influencers of Health Screening 05/13/2022 Hypertension/CHF/CAD Annual BMP Blood Test 05/20/2022 COVID-19 Vaccine ( season) 2024 05/09/2023, 05/12/2022, 10/11/2021, Additional history exists Depression Screening 09/09/2025 09/09/2024 Breast Cancer Screening 09/18/2026 09/19/19, 03/22/2022, 10/29/2020, Additional history exists Cholesterol Screening (Lipid Panel) 07/10/2029 07/10/2024 DTaP,Tdap,and Td Vaccines (4 - Td or Tdap) 11/08/2030 11/08/2020, 10/21/2014, 10/09/2008 RSV Immunization Adult Patients (1 - 1-dose 75+ series) 2039 Influenza Vaccine Completed 03/19/2024, , 03/01/2021, Additional history exists Pneumococcal Vaccine: 50+ Years Completed 03/19/2024 Pneumococcal Vaccine: Pediatrics (0 to 5 Years) and At-Risk Patients (6 to 64 Years) Aged Out 03/19/2024 No longer eligible based on patient's age to complete this topic HIB Vaccines Aged Out No longer eligi [...] on patient's age to complete this topic MMR Vaccines Aged Out No longer eligi ble based on patient's age to complete this topic Meningococcal ACWY Vaccine Aged Out N o longer eligible based on patient's age to complete this topic Meningococcal B Vaccine Aged Out No l onger eligible based on patient's age to complete this topic RSV Immunization Patients Under 20 months Aged Out No longer eligible based on patient's age to complete this topic Varicella Vaccines Aged Out No longer eligible based on patient's age to complete this topic Procedures Procedure Name Priority Date/Time Associated Diagnosis Comments MG MAMMO DIGITAL SCREENING W ALON BILAT Routine 09/18/2024 9:43 AM EDT Encounter for screening mammogram for malignant neoplasm of breast from Last 3 Months Results * MG Mammo Digital Screening w Alon bilat (09/18/2024 9:43 AM EDT) Anatomical Region Laterality Modality Breast Bilateral Mammography 09/18/2024 2:2 4 PM EDT Impressions 09/18/2024 2:31 PM EDT No mammographic evidence of malignancy. ?? No suspicious interval change. A negative mammogram in the presence of a clinically suspicious palpable abnormality does not preclude the possibility of malignancy or alter the indications for biopsy. ASSESSMENT: ?? BI-RADS 1: NEGATIVE RECOMMENDATION(S): 1: Routine screening mammogram BILATERAL in 1 year. [facility] [address], [address] -------- FINAL REPORT -------- Dictated By: Kevin Moore Dictated Date: 09/18/2024 14:24 ET Assigned Physician: Kevin Moore Reviewed and Electronically Signed By: Kevin Moore Signed Date: 09/18/2024 14:31 ET Workstation ID: [id number] Transcribed By: Self Edit Transcribed Date: 09/18/2024 14:24 ET Narrative 09/18/2024 2:31 PM EDT EXAM: ??SCREENING MAMMOGRAPHY, BILATERAL HISTORY: ??SCREENING. ??No additional history. COMPARISON: ??08/15/18, 08/02/17, 06/26/16 TECHNIQUE: Synthesized CC and MLO projections of each breast. ??Tomosynthesis of each breast in the CC and MLO projections. ADDITIONAL IMAGING: None Computer-aided detection was employed with the iCAD ??ProFound AI 3-D. TISSUE DENSITY: There are scattered areas of fibroglandular density. (BI-RADS category B) FINDINGS: RIGHT BREAST: No suspicious mass. No suspicious calcification. No distortion. ?? No additional suspicious right breast findings LEFT BREAST: No suspicious mass. No suspicious calcification. No distortion. ?? No additional suspicious left breast findings Procedure Note Kevin Moore MD - 09/18/2024 EXAM: SCREENING MAMMOGRAPHY, BILATERAL HISTORY: SCREENING. No additional history. COMPARISON: 08/15/18, 08/02/17, 06/26/16 TECHNIQUE: Synthesized CC and MLO projections of each breast.Tomosynthesis of each breast in the CC and MLO projections. ADDITIONAL IMAGING: None Computer-aided detection was employed with the iCAD ProFound AI 3-D. TISSUE DENSITY: There are scattered areas of fibroglandular density.(BI-RADS category B) FINDINGS: RIGHT BREAST: No suspicious mass. No suspicious calcification. No distortion. Noadditional suspicious right breast findings LEFT BREAST: No suspicious mass. No suspicious calcification. No distortion. Noadditional suspicious left breast findings IMPRESSION: No mammographic evidence of malignancy. No suspicious interval change. A negative mammogram in the presence of a clinically suspicious palpableabnormality does not preclude the possibility of malignancy or alter theindications for biopsy. ASSESSMENT: BI-RADS 1: NEGATIVE RECOMMENDATION(S): 1: Routine screening mammogram BILATERAL in 1 year. [facility] location[facility] at [address], [address] -------- FINAL REPORT -------- Dictated By: Kevin Moore Dictated Date: 09/18/2024 14:24 ET Assigned Physician: Kevin Moore Reviewed and Electronically Signed By: Kevin Moore Signed Date: 09/18/2024 14:31 ET Workstation ID: [id number] Transcribed By: Self Edit Transcribed Date: 09/18/2024 14:24 ET us Derrick Name IMG BI PROCEDURES Final Result from Last 3 Months Insurance MEDICAID - [place] Care Teams Peanut Cleaner Relationship Specialty Start Date End Date Name, MD Derrick [address] [place], [place] PCP - General 05/14/08
--- OUTSIDE RECORDS SUMMARY | 2024-10-13 17:36 | XMS_ITS | Encounter Summary ---
Author Organization [employer] Address [address] [facility] [address] [place] [address] Care Team Providers Care Boat Tender Name Role Phone Name, Derrick SIMS Primary Care Provider [phone] Encounter Details Date Type Department Care Team ([facility] st Contact Info) Description 10/10/2024 Orders Only [facility] [address] [place], [place] [phone] Name, MD Derrick [address] [place] [address] Social History Tobacco Use Types Packs/Day Years [...] Patient Health Questionnaire-2 Score 4 09/09/2024 Comments Unknown Sex and Gender Information Value Date Recorded Sex Assigned at Female 04/03/2022 10:16 AM EDT Legal Sex Female 10:16 AM EDT Gender Identity Female 04/03/2022 10:16 AM EDT Sexual Orientation Straight 04/03/2022 10 :16 AM EDT documented as of this encounter Plan of Treatment Not on file documented as of this encounter Procedures Procedure Name Priority Date/Time Associated Diagnosis Comments US RENAL BI Routine 10/10/2024 3:28 PM EDT documented in this encounter Results * US RENAL BI (10/10/2024 3:28 PM EDT) Anatomical Region Laterality Modality Abdomen Ultrasound 10/10/2024 3:28 PM EDT Narrative 10/13/2024 8:05 AM EDT ? [facility] ?[address] ?[place] [address] ? Ultrasound Report ? Signed ? Patient: Melody,Eduvigis ?MR#: [id number] ?? [id number] ? : 1965 ?Acct:[id number] ? Age/Sex: 59 / F ?ADM Date: 10/10/24 ? Loc: HO.US ? Attending Dr: Derrick Norton MD ? Ordering Physician: Derrick Norton MD ?? Date of Service: 10/10/24 ?? Procedure(s): US renal BI ?? Accession Number(s): [id number] ? cc: Derrick Norton MD ? EXAMINATION: ??US KIDNEY BILATERAL ? HISTORY: [...] DD/ 1528 ? TD/TT: 10/10/24 1533 ? Boiler Fireman: ? Procedure Note Jose Alberto Jenkins - 10/13/2024 [place] [address] Ultrasound Report Signed Patient: Jazmin Oliver#: [id number] : 1965Acct:[id number] Age/Sex: 59 / FADM Date: 10/10/24 Loc: HO.US Attending Dr: Derrick Norton MD Ordering Physician: Derrick Norton MD Date of Service: 10/10/24 Procedure(s): US renal BI Accession Number(s): [id number] cc: Derrick Norton MD EXAMINATION: US KIDNEY [...] Abimael Sparks MD 10/13/2024 08:03 AM EDT RP Dictated By: Abimael Sparks MD Signed By: <Electronically signed by Abimael Sparks MD in OV> 10/13/24 0803 DD/ 1528 TD/TT: 10/10/24 1533 Boiler Fireman: Derrick Norton MD IM US PROCEDURES Final Result documented in this encounter Visit Diagnoses Not on filedocumented in this encounter Additional Health Concerns Assessment Noted Time PHQ-9 Depression Total Score: 11 025 11:40 AM EDT documented as of this encounter Care Teams Boat Tender Relationship Specialty Start Date End Date Name, MD Derrick [address] [place] [address] PCP - General Family Medicine 08/20/15 documented as of this encounter
--- OUTSIDE RECORDS SUMMARY | 2024-10-13 17:36 | XMS_ITS | Encounter Summary ---
Author Organization [employer] Address [address] [facility] [address] [place] [address] Care Team Providers Care Fourdrinier Operator Name Role Phone Name, Derrick SIMS Primary Care Provider [phone] Reason for Visit * Reason Comments Med Refill Encounter Details Date Type Department Care Team (Late st Contact Info) Description 06/09/2024 Refill [facility] [address] [place], [place] [phone] Adelina Luke, ANP [address] [place], [place] [phone] Acute right-sided thoracic back pain; Rib pain [...] documented as of this encounter Care Teams Fourdrinier Operator Relationship Specialty Start Date End Date Name, MD Derrick [address] [place] [address] PCP - General Family Medicine 08/20/15 documented as of this encounter
--- OUTSIDE RECORDS SUMMARY | 2024-10-13 17:36 | XMS_ITS | Encounter Summary ---
Author Organization [email or web address] Address [address] [facility] [address] [place] [address] Care Team Providers Care Light Air Defense Artillery Crewmember Name Role Phone Name, Derrick SIMS Primary Care Provider [phone] Encounter Details Date Type Department Care Team (Latest Contact Info) Description 10/13/2024 Travel Social History Tobacco Use Types Packs/Day [...] documented as of this encounter Care Teams Light [employer] Defense Artillery Crewmember Relationship Specialty Start Date End Date Name, MD Derrick [address] [place] [address] PCP - General Family Medicine 08/20/15 documented as of this encounter
[2024-10-16 13:55] LABS: HPV Genotype 16 Negative (Negative); HPV Genotype 18 Negative (Negative); HPV High Risk Negative (Negative)
== END 2024-10-13 17:35 | disposition home or self-care (01) ==
LOC: HO.HHCLNP 17:34
PROVIDERS: Visit Provider Advanced Practice Midwife
DX: Z12.4 Encounter for screening for malignant neoplasm of cervix (principal)
CPT/HCPCS: 87626; 88175